=== PATIENT | female | born 1965 | race Caucasian/White ===

== ENCOUNTER → 2018-06-25 13:37 | Outpatient (CLI) | payer OTHER, MEDICAID, SELFPAY ==
--- NOTE | 2018-06-25 13:54 | DI.RAD.S_ITS ---
PROCEDURE: XR HAND LT MIN 3V INDICATIONS: left thumb pain TECHNIQUE: 3 views of the hand(s) acquired. COMPARISON: None. FINDINGS: Bones: No fractures or dislocations. Carpal bones are normally aligned. No suspicious bony lesions. Severe first carpometacarpal degenerative arthritis is noted. Soft tissues: No suspicious soft tissue calcifications. IMPRESSION: Severe degenerative arthritis at the base of the thumb. Dictated by: Tommie Schafer M.D. on 06/25/2018 at 17:34 Approved by: Tommie Schafer M.D. on 06/25/2018 at 17:34
[2018-06-25 14:26] LABS: Hematocrit 38.3 % (36-46); Hemoglobin 12.5 g/dL (12.0-16.0); Mean Corpuscular HGB Conc 32.7 % (30-36); Mean Corpuscular Hemoglobin 28.5 PG (26-34); Mean Corpuscular Volume 87.2 fL (80-100); Platelet Count 230 X10^3/uL (150-400); Red Blood Cell Count 4.39 X10^6/uL (4.0-5.2); Red Cell Distribution Width 13.8 % (11.6-14.8); White Blood Cell Count 6.2 X10^3/uL (4.5-11.0)
[2018-06-25 14:44] LABS: Alanine Aminotransferase 31 IU/L (9-52); Albumin 4.4 g/dL (3.5-5.0); Albumin Globulin Ratio 1.5 (1.0-2.8); Alkaline Phosphatase 82 U/L (38-126); Aspartate Aminotransferase 34 IU/L (14-36); Bilirubin Total 1.1 mg/dL (0.2-1.3); Blood Urea Nitrogen 16 mg/dL (7-17); Calcium 9.5 mg/dL (8.4-10.2); Carbon Dioxide 29 mmol/L (22-32); Chloride 101 mmol/L (98-107); Cholesterol 186 mg/dL (140-199); Estimated Glomerular Filt Rate > 60.0 mL/min (>60); Glucose 88 mg/dL (70-100); HDL Cholesterol 85 mg/dL (40-60); HEMOLYSIS < 15 (0-50); LDL Cholesterol Calculated 91 mg/dL (<100); Potassium 4.2 mmol/L (3.4-5.1); Sodium 139 mmol/L (137-145); Total Protein 7.4 g/dL (6.3-8.2); Triglycerides 48 mg/dL (35-150)
== END ==
PROVIDERS: Visit Provider Nurse Practitioner Family
DX: Z00.00 Encounter for general adult medical examination without abnormal findings (principal); Z13.6 Encounter for screening for cardiovascular disorders; M79.645 Pain in left finger(s)
CPT/HCPCS: 36415; 73130; 80053; 80061; 85027

== ENCOUNTER 2018-07-18 02:26 | Emergency (ER) | payer OTHER, MEDICAID, SELFPAY ==
[2018-07-18 02:30] VITALS: BP 147/105; PULSE 119; RESP 20; TEMP 36.5; O2SAT 96; BMI 21.6
--- NOTE | 2018-07-18 02:30 | ED.BACK ---
HPI - Back Pain/Injury General Chief Complaint: Back Pain/Injury Stated Complaint: BACK PAIN Time Seen by Provider: 07/18/18 02:27 Source: patient Mode of arrival: ambulatory Limitations: no limitations History of Present Illness HPI Narrative: Patient is here for right-sided upper back spasm. She states that it is radiating down to her right hand and providing tingling. She states it has been waking her up from night for the past several nights. Has not tried anything for the symptoms prior to arrival except for some light stretching. No specific trauma. She came in because the symptoms were getting worse this evening. Related Data Previous Rx's Medication Instructions Recorded naproxen 500 mg tablet 500 mg PO BID PRN #30 tab 06/20/18 cyclobenzaprine 10 mg PO TID PRN #14 tab 07/18/18 Allergies Allergy/AdvReac Type Severity Reaction Status Date / Time cephalexin [From Keflex] Allergy Severe really Verified 06/25/18 14:31 sick hydrocodone [HYDROCODONE] Allergy Unknown Unverified 06/25/18 14:31 Review of Systems Constitutional Denies fever(s) and Denies headache(s) ENT Ears, Nose, Mouth, and Throat: Denies headache(s) Cardiovascular Denies chest pain and Denies dyspnea Respiratory Denies dyspnea Musculoskeletal Comments: Upper back pain Integumentary/Breasts Denies rash Neurologic Denies headache(s) Comments: Tingling into the right hand Hematologic/Lymphatic Denies easy bleeding and Denies easy bruising [facility] Medical History Patient denies medical problems (Acute) Social History Smoking Status: Current every day smoker Tobacco: How many years used: 30 quit status: not considering quitting (Patient given smoking cessation handout) second hand exposure: No alcohol intake: never substance use type: does not use Social History Smoking Status: Current every day smoker Tobacco: How many years used: 30 quit status: not considering quitting (Patient given smoking cessation handout) second hand exposure: No alcohol intake: never substance use type: does not use Exam Initial Vital Signs Initial Vital Signs: Vital Signs Temperature 97.7 F 07/18/18 02:30 Pulse Rate 119 H 07/18/18 02:30 Respiratory Rate 20 07/18/18 02:30 Blood Pressure 147/105 H 07/18/18 02:30 Pulse Oximetry 96 07/18/18 02:30 Const General: cooperative, No comfortable (Uncomfortable), well developed, well groomed and No acute distress Orientation: alert and awake HENMT Head: normal to inspection and normocephalic Resp Effort & Inspection: normal respiratory effort Cardio Rate: tachycardic Back/Spine/Pelvis Other: On able to specifically locate muscle spasm in the upper back on the right side. Left side patient has no symptoms. Skin Lesions: no lesions Rashes: no rashes Neuro General: alert and awake Cognition: normal cognition Speech: speech normal Sensory Exam: no sensory deficits noted Extrem General: normal to inspection and capillary refill normal Course Orders Ordered: Discontinued Medications Diazepam (Valium) 5 mg PO NOW ONE Stop: 07/18/18 02:35 Last Admin: 07/18/18 02:38 Dose: 5 mg Ketorolac Tromethamine (Toradol) 30 mg IM NOW ONE Stop: 07/18/18 02:35 Last Admin: 07/18/18 02:37 Dose: 30 mg Vital Signs - 8 hr 07/18/18 02:30 Temperature 97.7 F Pulse Rate 119 H Respiratory Rate 20 Blood Pressure 147/105 H Pulse Oximetry 96 MDM - Back Pain/Injury MDM Narrative Medical decision making narrative: Patient reports some improvement of the symptoms after the medications here in the ER. A note from earlier this month from her primary provider does indicate the patient was complaining of tingling to bilateral hands patient has no fevers. We did discuss the use of anti-inflammatories and muscle relaxation. We also discussed return precautions and follow-up instructions. She expressed understanding and agreement plan. Discharge Plan Departure Patient Disposition: Home Clinical Impression: Acute right-sided thoracic back pain, Paresthesias in right hand Instructions: DI for Thoracic Back Pain Activity Restrictions/Additional Instructions: Recommend that you start taking anti-inflammatories such as Motrin/ibuprofen or Naprosyn/naproxen. Sure to take this with some food. Contact your primary care provider for a follow-up. You can also use heat and ice and I also recommend light massage to help with the pain. Return to the emergency department for any new symptoms Prescriptions: New cyclobenzaprine 10 mg tablet 10 mg PO TID PRN (Reason: muscle spasm) Qty: 14 RF: 0 No Action naproxen 500 mg tablet 500 mg PO BID PRN (Reason: pain) Qty: 30 RF: 0 Referrals: Ismael Merino ARNP [Primary Care Provider] -
[2018-07-18] MEDS: KETOROLAC 60 MG/2 ML VIAL 30 MG IM (02:37)
[2018-07-18] MEDS: diazePAM 5 MG TABLET PO (02:38)
[2018-07-18 03:20] VITALS: BP 120/80; PULSE 92; RESP 18; O2SAT 98
--- NOTE | 2018-07-18 03:31 | PC.NURSE ---
Patient states right-sided upper back spasm thats radiating down to her right hand and tingling that has been occuring at night for the past week and usually resolves but did not resolve tonight. States she thinks she has overdone it with too much activity and gardening lately. Pt ambulating about room denies urinary or bowel incontinence.
== END 2018-07-18 03:31 | disposition home or self-care (01) ==
PROVIDERS: Emergency Provider Emergency Medicine; PCP Nurse Practitioner Family
DX: M54.6 Pain in thoracic spine (principal); R20.2 Paresthesia of skin
CPT/HCPCS: 96372; 99282; 99283; J1885

== ENCOUNTER 2018-08-26 10:30 | Outpatient (RCR) | payer OTHER, MEDICAID, SELFPAY ==
--- NOTE | 2018-07-09 17:35 | PT.OIE ---
Current Diagnoses Anesthesia of skin (07/09/18) Provider Visit Care Team Role Provider Type RAMANA Michelle Attending Provider Advanced Human Resource Advisor Primary Care Provider Specialty: Family Practice Address: [address] [place] [address], [id number] Email: Physical Therapy Initial Evaluation PT-OP-A Visit Information Start: 07/09/18 16:21 Freq: Status: Active Protocol: Document 07/09/18 17:35 EA (Rec: 07/10/18 07:30 EA [id number]) Out-Patient Physical Therapy Visit Information Visit Information Visit Type Initial Evaluation Visit Start Time 12:15 Visit Stop Time 13:00 Total Visit Minutes 35 Visit Number 1 Evaluation Information Evaluation Date 07/09/18 Precautions Precautions None identified PT-OP-B Current Condition Start: 07/09/18 16:21 Freq: Status: Active Protocol: Document 07/09/18 17:35 EA (Rec: 07/10/18 07:30 EA [id number]) Current Condition History of Current Condition Onset Date June 29, 2018 Current Complaints Mid back pain w/ tingling radiates down R arm and dorsal 3rd and 4th finger History of Current Condition Patient reports current condition started more than 6 months ago and which exacerbates more than a week ago after pruning on her backyard; states advil and helps to alleviate pain and tingling but was not completely eliminate. Patient reports pain and tingling mostly happened upon waking up in the morning or in the middle of the evening and decreases once started using it during the day. She also mentioned that arm pain and tingling mostly accompanied with mid back pain. She denies recent diagnostic imaging. She denies any related injury in the past. Prior Treatments and Tests Advil for pain Future Testing and Treatments Planned None identified. Treatment Goals Patient/Caregiver Goals Patient wants to get rid of the pain so she could use it for writing and be able sleep without bothering from pain and abnormal sensation to right UE. 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 Functional Limitations- Work/School Unable to work due to right shoulder and hand discomfort. Functional Limitations- Recreation/ Difficulty with gardening. Hobbies Personal Factors Other Personal Factors That May Effect None identified. Therapy/Recovery PT-OP-C Subjective Start: 07/09/18 16:21 Freq: Status: Active Protocol: Document 07/09/18 17:35 EA (Rec: 07/10/18 12:44 EA [id number]) OP-PT Subjective Patient Comments Patient Comments My right arm and fingers goes numb and tingled in the morning when I wake up and got better throughout the day Patient Reported Progress Same OP-PT Pain Assessment Pain Assessment Grid Paper Pain Assessment Grid Completed Yes Location Bilateral Upper Medial Back Pain Location Details Mid back, right arm Scale Used Numeric (1 - 10) Description Radiating Tingling Frequency Intermittent Pain Aggravating Factors Position Other Pain Alleviating Factors Advil Patient Stated Pain Goal 0 PT-OP-E Functional Tests Start: 07/09/18 16:21 Freq: Status: Active Protocol: Document 07/09/18 17:35 EA (Rec: 07/10/18 12:38 EA [id number]) Functional Tests Other 1 Name of Test Hand pantograph transferrer dynamometer: L 32 ; R 32 Score Normal (28) PT-OP-F Manual Assessment Start: 07/09/18 16:21 Freq: Status: Active Protocol: Document 07/09/18 17:35 EA (Rec: 07/10/18 12:38 EA [id number]) Manual Assessments Soft Tissue Assessment Soft Tissue Mobility Assessment Tight right scapular borders, scalenes, traps, rhomboids. Tight shoulder internal rotators. Joint Mobility Assessment Joint Mobility Assessment Normal joint mobility on shoulder, CMC, wrists. PT-OP-J Posture/Palpation/Skin Start: 07/09/18 16:21 Freq: Status: Active Protocol: Document 07/09/18 17:35 EA (Rec: 07/10/18 12:38 EA [id number]) Posture Evaluation Position Standing Evaluation View Lateral Head/C-Spine Posture Extended Forward Head Shoulder Posture (L) Rounded (L) Forward Scapula Posture (L) Protracted (R) Protracted Comments Posture Comments Slight fwd head with shoulders internally rotated. Palpation Assessment Location One Palpation Location Rhomboids, mid traps, right scapular muscles. Palpation Findings Tenderness Trigger Point Palpation Details Both rhomboids PT-OP-K Range of Motion Start: 07/09/18 16:21 Freq: Status: Active Protocol: Document 07/09/18 17:35 EA (Rec: 07/10/18 12:15 EA [id number]) Cervical Spine Range of Motion Cervical Spine Active Percentage Testing Position Sitting Flexion 90 Extension 85 Rotation Left 85 Rotation Right 85 Lateral Flexion Left 80 Lateral Flexion Right 80 ROM Limitations Soft Tissue Tightness Pain Shoulder Goniometric Range of Motion Shoulder Measured in Degrees Right Active Shoulder ROM WFL Yes Elbow/Forearm Range of Motion Elbow/Forearm Measured in Degrees Right Active Elbow/Forearm ROM WFL Yes Thumb Goniometric Range of Motion Thumb Measured in Degrees Left Thumb ROM WFL Yes PT-OP-L Special Tests Start: 07/09/18 16:21 Freq: Status: Active Protocol: Document 07/09/18 17:35 EA (Rec: 07/10/18 12:15 EA [id number]) Special Tests Cervical Spine Special Tests Upper Limb Tension Test Test Results + ulnar Foraminal Compression Test Results - Vertebral Artery Test Results - Shoulder Special Tests Leung Santy Impingement Test Results - Elevation Impingement Test Results - Neural Special Tests- Lower Body Other- 1 Test Results [place] and Lala tests + Other Special Tests Special Tests Trigger point jump sign: positive at right medial scapular border PT-OP-M Strength Start: 07/09/18 16:21 Freq: Status: Active Protocol: Document 07/09/18 17:35 EA (Rec: 07/10/18 12:15 EA [id number]) Cervical Spine Strength Cervical Spine Manual Muscle Testing Testing Position Supine Reason Not Measured WFL Shoulder Strength Shoulder Manual Muscle Testing Right Reason Not Measured WFL Wrist Strength Wrist Manual Muscle Testing Right Reason Not Measured WFL Finger/Thumb Strength Finger Manual Muscle Testing Right Thumb Reason Not Measured WFL Hand Fiscal Economist/Pinch Strength Hand Dominance Hand Dominance Right PT-OP-Q Treatments Start: 07/09/18 16:21 Freq: Status: Active Protocol: Document 07/09/18 17:03 EA (Rec: 07/09/18 17:06 EA [id number]) Self-Care/Home Management Treatment Education Patient Education Home Exercise Program Pain Management Posture PT-OP-T Assessment and Plan Start: 07/09/18 16:21 Freq: Status: Active Protocol: Document 07/09/18 17:35 EA (Rec: 07/09/18 17:06 EA [id number]) Physical Therapy Assessment Rehab Potential Rehabilitation Potential Good Evaluation Complexity Number of Personal Factors/Comorbidities 0 Number of Body Systems Impaired 1-2 Clinical Presentation at Evaluation Evolving Impairments Impairments Edema Pain Posture ROM Soft Tissue Mobility Goals Four Impairment No HEP in place Tester Operator Goal (LTG) Patient will comply to recommended HEP safe and independent LTG Duration 3 wks Three Impairment Impaired gardening activity tolerance Tester Operator Goal (LTG) Patient will report no gardening activity limitation LTG Duration 5 wks Two Impairment Impaired writing Tester Operator Goal (LTG) Patient will report no difficulty in writing activities. LTG Duration 4 wks One Impairment Impaired sleeping Tester Operator Goal (LTG) Patient will sleep with no waking up in the middle of the night and will wake up in the morning without arm discomfort LTG Duration 4 wks Assessment Summary Assessment 52 y/o F patient slightly distress with a referring diagnosis of right finger numbness. Today patient exhibited normal R UEs ROM of major joints and strength with no evidence of significant weakness. Special tests reveals positive with trigger point jump sign, nerve tension to ulnar nerve, negative with cervical nerve compression, negative with rotator cuff dysfunction. Through patient history and assessments, patient may be suffering with scapular trigger points with combination of increased nerve tension to ulnas nerve, however no evidence of cervical nerve root compression. Due to above dysfunction, patient is impaired to perform daily functional tasks that is supposed to be normal at her age. In my professional opinion, patient would greatly benefit with skilled PT to reach maximum function. Physical Therapy Plan Frequency and Duration Frequency of Treatment 2x/Week Duration of Treatment 8 wks Plan of Care Start Date 07/09/18 Plan of Care End Date 09/03/18 Therapeutic Interventions Therapeutic Interventions Home Exercise Program Manual Therapy Neuromuscular Re-education Patient/Caregiver Education Self-Care/Home Management Soft Tissue Mobilization Taping Therapeutic Exercises Modalities Cold Pack/Ice Massage Electric Stimulation Hot Packs Paraffin Bath Next Visit Focus/Plan Next Note Type Treatment Note Next Visit Plan Provide HEP images, myofascial release to scapular borders, postural exercises.
--- NOTE | 2018-07-09 17:40 | PT.OIE ---
Current Diagnoses Anesthesia of skin (07/09/18) Provider Visit Care Team Role Provider Type RAMANA Michelle Attending Provider Advanced Wax Pattern Assembler Primary Care Provider Specialty: Family Practice Address: [address] [place] [address], [id number] Email: Physical Therapy Initial Evaluation PT-OP-A Visit Information Start: 07/09/18 16:21 Freq: Status: Active Protocol: Document 07/09/18 17:35 EA (Rec: 07/10/18 07:30 EA [id number]) Out-Patient Physical Therapy Visit Information Visit Information Visit Type Initial Evaluation Visit Start Time 12:15 Visit Stop Time 13:00 Total Visit Minutes 35 Visit Number 1 Evaluation Information Evaluation Date 07/09/18 Precautions Precautions None identified PT-OP-B Current Condition Start: 07/09/18 16:21 Freq: Status: Active Protocol: Document 07/09/18 17:35 EA (Rec: 07/10/18 07:30 EA [id number]) Current Condition History of Current Condition Onset Date June 29, 2018 Current Complaints Mid back pain w/ tingling radiates down R arm and dorsal 3rd and 4th finger History of Current Condition Patine reports current conditiotn started more than 6 months and which exacerbates more than a week ago after prunning on her backyard; states advil and helps to alleviate pain and tingling but was not completely eliminate. Patient reports pain and tingling mostly happened upon waking up in the morning or in the middle of the evening and decreases once strated using it during the day. She also mentioned that arm pain and tingling mostly accompanied with mid back pain . She denies recent diagnostic imaging. She denies any related injury in the past. Prior Treatments and Tests Advil for pain Future Testing and Treatments Planned None identified. Treatment Goals Patient/Caregiver Goals Patient wants to get rid of the pain so she could use it for writing and be able sleep without bothering from pain and abnormal sensation to right UE. 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 Functional Limitations- Work/School Unable to work due to right shoulder and hand discomfort. Functional Limitations- Recreation/ Difficulty with gardening. Hobbies Personal Factors Other Personal Factors That May Effect None identified. Therapy/Recovery PT-OP-C Subjective Start: 07/09/18 16:21 Freq: Status: Active Protocol: Document 07/09/18 17:35 EA (Rec: 07/10/18 12:44 EA [id number]) OP-PT Subjective Patient Comments Patient Comments My right arm and fingers goes numb and tingled in the morning when I wake up and got better throughout the day Patient Reported Progress Same OP-PT Pain Assessment Pain Assessment Grid Paper Pain Assessment Grid Completed Yes Location Bilateral Upper Medial Back Pain Location Details Mid back, right arm Scale Used Numeric (1 - 10) Description Radiating Tingling Frequency Intermittent Pain Aggravating Factors Position Other Pain Alleviating Factors Advil Patient Stated Pain Goal 0 PT-OP-E Functional Tests Start: 07/09/18 16:21 Freq: Status: Active Protocol: Document 07/09/18 17:35 EA (Rec: 07/10/18 12:38 EA [id number]) Functional Tests Other 1 Name of Test Hand boiler operator dynamometer: L 32 ; R 32 Score Normal (28) PT-OP-F Manual Assessment Start: 07/09/18 16:21 Freq: Status: Active Protocol: Document 07/09/18 17:35 EA (Rec: 07/10/18 12:38 EA [id number]) Manual Assessments Soft Tissue Assessment Soft Tissue Mobility Assessment Tight right scapular borders, scalenes, traps, rhomboids. Tight shoulder internal rotators. Joint Mobility Assessment Joint Mobility Assessment Normal joint mobility on shoulder, CMC, wrists. PT-OP-J Posture/Palpation/Skin Start: 07/09/18 16:21 Freq: Status: Active Protocol: Document 07/09/18 17:35 EA (Rec: 07/10/18 12:38 EA [id number]) Posture Evaluation Position Standing Evaluation View Lateral Head/C-Spine Posture Extended Forward Head Shoulder Posture (L) Rounded (L) Forward Scapula Posture (L) Protracted (R) Protracted Comments Posture Comments Slight fwd head with shoulders internally rotated. Palpation Assessment Location One Palpation Location Rhomboids, mid traps, right scapular muscles. Palpation Findings Tenderness Trigger Point Palpation Details Both rhomboids PT-OP-K Range of Motion Start: 07/09/18 16:21 Freq: Status: Active Protocol: Document 07/09/18 17:35 EA (Rec: 07/10/18 12:15 EA [id number]) Cervical Spine Range of Motion Cervical Spine Active Percentage Testing Position Sitting Flexion 90 Extension 85 Rotation Left 85 Rotation Right 85 Lateral Flexion Left 80 Lateral Flexion Right 80 ROM Limitations Soft Tissue Tightness Pain Shoulder Goniometric Range of Motion Shoulder Measured in Degrees Right Active Shoulder ROM WFL Yes Elbow/Forearm Range of Motion Elbow/Forearm Measured in Degrees Right Active Elbow/Forearm ROM WFL Yes Thumb Goniometric Range of Motion Thumb Measured in Degrees Left Thumb ROM WFL Yes PT-OP-L Special Tests Start: 07/09/18 16:21 Freq: Status: Active Protocol: Document 07/09/18 17:35 EA (Rec: 07/10/18 12:15 EA [id number]) Special Tests Cervical Spine Special Tests Upper Limb Tension Test Test Results + ulnar Foraminal Compression Test Results - Vertebral Artery Test Results - Shoulder Special Tests Leung Santy Impingement Test Results - Elevation Impingement Test Results - Neural Special Tests- Lower Body Other- 1 Test Results [place]ancarl[place] and Lala tests + Other Special Tests Special Tests Trigger point jump sign: positive at right medial scapular border PT-OP-M Strength Start: 07/09/18 16:21 Freq: Status: Active Protocol: Document 07/09/18 17:35 EA (Rec: 07/10/18 12:15 EA [id number]) Cervical Spine Strength Cervical Spine Manual Muscle Testing Testing Position Supine Reason Not Measured WFL Shoulder Strength Shoulder Manual Muscle Testing Right Reason Not Measured WFL Wrist Strength Wrist Manual Muscle Testing Right Reason Not Measured WFL Finger/Thumb Strength Finger Manual Muscle Testing Right Thumb Reason Not Measured WFL Hand Pediatric Acute Care Unit Nurse/Pinch Strength Hand Dominance Hand Dominance Right PT-OP-Q Treatments Start: 07/09/18 16:21 Freq: Status: Active Protocol: Document 07/09/18 17:03 EA (Rec: 07/09/18 17:06 EA [id number]) Self-Care/Home Management Treatment Education Patient Education Home Exercise Program Pain Management Posture PT-OP-T Assessment and Plan Start: 07/09/18 16:21 Freq: Status: Active Protocol: Document 07/09/18 17:35 EA (Rec: 07/09/18 17:06 EA [id number]) Physical Therapy Assessment Rehab Potential Rehabilitation Potential Good Evaluation Complexity Number of Personal Factors/Comorbidities 0 Number of Body Systems Impaired 1-2 Clinical Presentation at Evaluation Evolving Impairments Impairments Edema Pain Posture ROM Soft Tissue Mobility Goals Four Impairment No HEP in place Whiting Machine Operator Goal (LTG) Patient will comply to recommended HEP safe and independent LTG Duration 3 wks Three Impairment Impaired gardening activity tolerance Whiting Machine Operator Goal (LTG) Patient will report no gardening activity limitation LTG Duration 5 wks Two Impairment Impaired writing Whiting Machine Operator Goal (LTG) Patient will report no diffikculty in writing activities. LTG Duration 4 wks One Impairment Impaired sleeping Detention Goal (LTG) Patient will sleep with no waking up in the middle of the night and will wake up in the morning without arm discomfort LTG Duration 4 wks Assessment Summary Assessment 52 y/o F patient slightly distress with a referring diagnosis of right finger numbness. Today patient exhibited normal R UEs ROM of major joints and strength with no evidence of significant weakness. Special tests reveals positive with trigger point jump sign, nerve tension to ulnar nerve, negative with cervical nerve compression, negative with rotator cuff dysfunction. Through patient history and assessments, patient may be suffering with scapular trigger points with combination of increased nerve tension to ulnas nerve, however no evidence of cervical nerve root compression. Due to above dysfunction, patient is impared to perform daily functional tasks that is supposed to be normal at her age. In my professional opinion, patient would greatly benefit with skilled PT to reach maximum function. Physical Therapy Plan Frequency and Duration Frequency of Treatment 2x/Week Duration of Treatment 8 wks Plan of Care Start Date 07/09/18 Plan of Care End Date 09/03/18 Therapeutic Interventions Therapeutic Interventions Home Exercise Program Manual Therapy Neuromuscular Re-education Patient/Caregiver Education Self-Care/Home Management Soft Tissue Mobilization Taping Therapeutic Exercises Modalities Cold Pack/Ice Massage Electric Stimulation Hot Packs Paraffin Bath Next Visit Focus/Plan Next Note Type Treatment Note Next Visit Plan Provide HEP images, myofascial release to scapular borders, postural exercises.
--- NOTE | 2018-07-09 17:40 | PT.OPPOC ---
Current Diagnoses Anesthesia of skin (07/09/18) Provider Visit Care Team Role Provider Type RAMANA Michelle Attending Provider Advanced Engineering Test Mechanic Primary Care Provider Specialty: Family Practice Address: [address] [place] [address], [phone] Email: Plan Of Care PT-OP-T Assessment and Plan Start: 07/09/18 16:21 Freq: Status: Active Protocol: Document 07/09/18 17:35 EA (Rec: 07/09/18 17:06 EA [id number]) Physical Therapy Assessment Rehab Potential Rehabilitation Potential Good Evaluation Complexity Number of Personal Factors/Comorbidities 0 Number of Body Systems Impaired 1-2 Clinical Presentation at Evaluation Evolving Impairments Impairments Edema Pain Posture ROM Soft Tissue Mobility Goals Four Impairment No HEP in place Associate Doctor Goal (LTG) Patient will comply to recommended HEP safe and independent LTG Duration 3 wks Three Impairment Impaired gardening activity tolerance Intermediate Goal (LTG) Patient will report no gardening activity limitation LTG Duration 5 wks Two Impairment Impaired writing Intermediate Goal (LTG) Patient will report no difficulty in writing activities. LTG Duration 4 wks One Impairment Impaired sleeping Associate Doctor Goal (LTG) Patient will sleep with no waking up in the middle of the night and will wake up in the morning without arm discomfort LTG Duration 4 wks Assessment Summary Assessment 52 y/o F patient slightly distress with a referring diagnosis of right finger numbness. Today patient exhibited normal R UEs ROM of major joints and strength with no evidence of significant weakness. Special tests reveals positive with trigger point jump sign, nerve tension to ulnar nerve, negative with cervical nerve compression, negative with rotator cuff dysfunction. Through patient history and assessments, patient may be suffering with scapular trigger points with combination of increased nerve tension to ulnas nerve, however no evidence of cervical nerve root compression. Due to above dysfunction, patient is impaired to perform daily functional tasks that is supposed to be normal at her age. In my professional opinion, patient would greatly benefit with skilled PT to reach maximum function. Physical Therapy Plan Frequency and Duration Frequency of Treatment 2x/Week Duration of Treatment 8 wks Plan of Care Start Date 07/09/18 Plan of Care End Date 09/03/18 Therapeutic Interventions Therapeutic Interventions Home Exercise Program Manual Therapy Neuromuscular Re-education Patient/Caregiver Education Self-Care/Home Management Soft Tissue Mobilization Taping Therapeutic Exercises Modalities Cold Pack/Ice Massage Electric Stimulation Hot Packs Paraffin Bath Next Visit Focus/Plan Next Note Type Treatment Note Next Visit Plan Provide HEP images, myofascial release to scapular borders, postural exercises. Plan of Care Dates Plan of Care Start Date 07/09/18 Plan of Care End Date 09/03/18 Please Sign and Return: I have reviewed this Plan of Care and certify that the skilled therapy services above are required to meet the patient?s needs. Physician Signature Date Printed Name and Credentials Clinical Instructor Signature Printed Name and Credentials
--- NOTE | 2018-07-11 15:17 | PT.OTN ---
Current Diagnoses Anesthesia of skin (07/11/18) Physical Therapy Treatment Note PT-OP-A Visit Information Start: 07/09/18 16:21 Freq: Status: Active Protocol: Document 07/11/18 12:54 EA (Rec: 07/11/18 13:02 EA [id number]) Out-Patient Physical Therapy Visit Information Visit Information Visit Type Initial Evaluation Visit Start Time 12:15 Visit Stop Time 13:08 Total Visit Minutes 53 Visit Number 2 PT-OP-B Current Condition Start: 07/09/18 16:21 Freq: Status: Active Protocol: Document 07/09/18 17:35 EA (Rec: 07/10/18 07:30 EA [id number]) Current Condition History of Current Condition Onset Date June 29, 2018 Current Complaints Mid back pain w/ tingling radiates down R arm and dorsal 3rd and 4th finger History of Current Condition Patient reports current condition started more than 6 months ago and which exacerbates more than a week ago after prunning on her backyard; states advil and helps to alleviate pain and tingling but was not completely eliminate. Patient reports pain and tingling mostly happened upon waking up in the morning or in the middle of the evening and decreases once strated using it during the day. She also mentioned that arm pain and tingling mostly accompanied with mid back pain. She denies recent diagnostic imaging. She denies any related injury in the past. Prior Treatments and Tests Advil for pain Future Testing and Treatments Planned None identified. Treatment Goals Patient/Caregiver Goals Patient wants to get rid of the pain so she could use it for writing and be able sleep without bothering from pain and abnormal sensation to right UE. 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 Functional Limitations- Work/School Unable to work due to right shoulder and hand discomfort. Functional Limitations- Recreation/ Difficulty with gardening. Hobbies Personal Factors Other Personal Factors That May Effect None identified. Therapy/Recovery PT-OP-C Subjective Start: 07/09/18 16:21 Freq: Status: Active Protocol: Document 07/11/18 12:54 EA (Rec: 07/11/18 13:02 EA [id number]) OP-PT Subjective Patient Comments Patient Comments Patient reports tennis ball pressure to back helps a bit. PT-OP-E Functional Tests Start: 07/09/18 16:21 Freq: Status: Active Protocol: Document 07/09/18 17:35 EA (Rec: 07/10/18 12:38 EA [id number]) Functional Tests Other 1 Name of Test Hand senior applications architect dynamometer: L 32 ; R 32 Score Normal (28) PT-OP-F Manual Assessment Start: 07/09/18 16:21 Freq: Status: Active Protocol: Document 07/09/18 17:35 EA (Rec: 07/10/18 12:38 EA [id number]) Manual Assessments Soft Tissue Assessment Soft Tissue Mobility Assessment Tight right scapular borders, scalenes, traps, rhomboids. Tight shoulder internal rotators. Joint Mobility Assessment Joint Mobility Assessment Normal joint mobility on shoulder, CMC, wrists. PT-OP-J Posture/Palpation/Skin Start: 07/09/18 16:21 Freq: Status: Active Protocol: Document 07/09/18 17:35 EA (Rec: 07/10/18 12:38 EA [id number]) Posture Evaluation Position Standing Evaluation View Lateral Head/C-Spine Posture Extended Forward Head Shoulder Posture (L) Rounded (L) Forward Scapula Posture (L) Protracted (R) Protracted Comments Posture Comments Slight fwd head with shoulders internally rotated. Palpation Assessment Location One Palpation Location Rhomboids, mid traps, right scapular muscles. Palpation Findings Tenderness Trigger Point Palpation Details Both rhomboids PT-OP-K Range of Motion Start: 07/09/18 16:21 Freq: Status: Active Protocol: Document 07/09/18 17:35 EA (Rec: 07/10/18 12:15 EA [id number]) Cervical Spine Range of Motion Cervical Spine Active Percentage Testing Position Sitting Flexion 90 Extension 85 Rotation Left 85 Rotation Right 85 Lateral Flexion Left 80 Lateral Flexion Right 80 ROM Limitations Soft Tissue Tightness Pain Shoulder Goniometric Range of Motion Shoulder Measured in Degrees Right Active Shoulder ROM WFL Yes Elbow/Forearm Range of Motion Elbow/Forearm Measured in Degrees Right Active Elbow/Forearm ROM WFL Yes Thumb Goniometric Range of Motion Thumb Measured in Degrees Left Thumb ROM WFL Yes PT-OP-L Special Tests Start: 07/09/18 16:21 Freq: Status: Active Protocol: Document 07/09/18 17:35 EA (Rec: 07/10/18 12:15 EA [id number]) Special Tests Cervical Spine Special Tests Upper Limb Tension Test Test Results + ulnar Foraminal Compression Test Results - Vertebral Artery Test Results - Shoulder Special Tests Leung Santy Impingement Test Results - Elevation Impingement Test Results - Neural Special Tests- Lower Body Other- 1 Test Results [place] and Lala tests + Other Special Tests Special Tests Trigger point jump sign: positive at right medial scapular border PT-OP-M Strength Start: 07/09/18 16:21 Freq: Status: Active Protocol: Document 07/09/18 17:35 EA (Rec: 07/10/18 12:15 EA [id number]) Cervical Spine Strength Cervical Spine Manual Muscle Testing Testing Position Supine Reason Not Measured WFL Shoulder Strength Shoulder Manual Muscle Testing Right Reason Not Measured WFL Wrist Strength Wrist Manual Muscle Testing Right Reason Not Measured WFL Finger/Thumb Strength Finger Manual Muscle Testing Right Thumb Reason Not Measured WFL Hand Steam Engineer/Pinch Strength Hand Dominance Hand Dominance Right PT-OP-Q Treatments Start: 07/09/18 16:21 Freq: Status: Active Protocol: Document 07/11/18 12:54 EA (Rec: 07/11/18 13:02 EA [id number]) Cardio Equipment Upper Body Ergometer (UBE) Duration (Minutes) 5 Height 5 Other warm up Therapeutic Exercises Prone Exercises 2 Prone Exercise Name Shoulder flexion/Y Reps/Minutes 15 reps x 2 1 Prone Exercise Name Horiz ABD Reps/Minutes x 15 reps x 2 Sitting Exercises 2 Sitting Exercise Name Sitted chest stretch Reps/Minutes x 30SH x 3 reps 1 Sitting Exercise Name rhomboids, traps stretch Reps/Minutes x 30SH x 3 reps Manual Therapy Treatment Soft Tissue Mobilization 1 Body Location Rhomboids, scapular borders Mobilization Type Myofascial Release Rolling Sustained Pressure Trigger Point Release Intensity/Depth Moderate Comments Start and end with effleurage PT-OP-R Modalities Start: 07/09/18 16:21 Freq: Status: Active Protocol: Document 07/11/18 12:54 EA (Rec: 07/11/18 13:02 EA [id number]) Electric Stimulation Electric Stimulation Interferential Current (IFC) Body Location rhomboids, T-major, infra Duration (Minutes) 15 Intensity 25 Patient Position Prone Combined With Heat/Cold Hot Pack PT-OP-T Assessment and Plan Start: 07/09/18 16:21 Freq: Status: Active Protocol: Document 07/11/18 12:54 EA (Rec: 07/11/18 13:02 EA [id number]) Physical Therapy Assessment Assessment Summary Assessment Patient performed exercises very well with no range of pain noted at this time. Patient understands and showed good carryover after HEP education. Symptoms improved after manual. Physical Therapy Plan Next Visit Focus/Plan Next Note Type Treatment Note Next Visit Plan myofascial release to scapular borders, postural exercises.
--- NOTE | 2018-07-17 13:00 | PT.OTN ---
Current Diagnoses Anesthesia of skin (07/17/18) Physical Therapy Treatment Note PT-OP-A Visit Information Start: 07/09/18 16:21 Freq: Status: Active Protocol: Document 07/17/18 13:00 DLM (Rec: 07/17/18 15:38 DLM [id number]) Out-Patient Physical Therapy Visit Information Visit Information Visit Type Treatment Note Visit Start Time 13:00 Visit Stop Time 13:50 Total Visit Minutes 50 Visit Number 3 Evaluation Information Evaluation Date 07/09/18 PT-OP-B Current Condition Start: 07/09/18 16:21 Freq: Status: Active Protocol: Document 07/09/18 17:35 EA (Rec: 07/10/18 07:30 EA [id number]) Current Condition History of Current Condition Onset Date June 29, 2018 Current Complaints Mid back pain w/ tingling radiates down R arm and dorsal 3rd and 4th finger History of Current Condition Patient reports current condition started more than 6 months ago and which exacerbates more than a week ago after prunning on her backyard; states advil and helps to alleviate pain and tingling but was not completely eliminate. Patient reports pain and tingling mostly happened upon waking up in the morning or in the middle of the evening and decreases once strated using it during the day. She also mentioned that arm pain and tingling mostly accompanied with mid back pain. She denies recent diagnostic imaging. She denies any related injury in the past. Prior Treatments and Tests Advil for pain Future Testing and Treatments Planned None identified. Treatment Goals Patient/Caregiver Goals Patient wants to get rid of the pain so she could use it for writing and be able sleep without bothering from pain and abnormal sensation to right UE. 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 Functional Limitations- Work/School Unable to work due to right shoulder and hand discomfort. Functional Limitations- Recreation/ Difficulty with gardening. Hobbies Personal Factors Other Personal Factors That May Effect None identified. Therapy/Recovery PT-OP-C Subjective Start: 07/09/18 16:21 Freq: Status: Active Protocol: Document 07/17/18 13:00 DLM (Rec: 07/17/18 15:38 DLM [id number]) OP-PT Subjective Patient Comments Patient Comments She continues to have intermittent symptoms in right UE. It is worse in the morning when she gets up. Her hand also feels stiff. Her friend has a home estim unit and she questioned if she can use it. PT-OP-E Functional Tests Start: 07/09/18 16:21 Freq: Status: Active Protocol: Document 07/09/18 17:35 EA (Rec: 07/10/18 12:38 EA [id number]) Functional Tests Other 1 Name of Test Hand account representative dynamometer: L 32 ; R 32 Score Normal (28) PT-OP-F Manual Assessment Start: 07/09/18 16:21 Freq: Status: Active Protocol: Document 07/09/18 17:35 EA (Rec: 07/10/18 12:38 EA [id number]) Manual Assessments Soft Tissue Assessment Soft Tissue Mobility Assessment Tight right scapular borders, scalenes, traps, rhomboids. Tight shoulder internal rotators. Joint Mobility Assessment Joint Mobility Assessment Normal joint mobility on shoulder, CMC, wrists. PT-OP-J Posture/Palpation/Skin Start: 07/09/18 16:21 Freq: Status: Active Protocol: Document 07/09/18 17:35 EA (Rec: 07/10/18 12:38 EA [id number]) Posture Evaluation Position Standing Evaluation View Lateral Head/C-Spine Posture Extended Forward Head Shoulder Posture (L) Rounded (L) Forward Scapula Posture (L) Protracted (R) Protracted Comments Posture Comments Slight fwd head with shoulders internally rotated. Palpation Assessment Location One Palpation Location Rhomboids, mid traps, right scapular muscles. Palpation Findings Tenderness Trigger Point Palpation Details Both rhomboids PT-OP-K Range of Motion Start: 07/09/18 16:21 Freq: Status: Active Protocol: Document 07/09/18 17:35 EA (Rec: 07/10/18 12:15 EA [id number]) Cervical Spine Range of Motion Cervical Spine Active Percentage Testing Position Sitting Flexion 90 Extension 85 Rotation Left 85 Rotation Right 85 Lateral Flexion Left 80 Lateral Flexion Right 80 ROM Limitations Soft Tissue Tightness Pain Shoulder Goniometric Range of Motion Shoulder Measured in Degrees Right Active Shoulder ROM WFL Yes Elbow/Forearm Range of Motion Elbow/Forearm Measured in Degrees Right Active Elbow/Forearm ROM WFL Yes Thumb Goniometric Range of Motion Thumb Measured in Degrees Left Thumb ROM WFL Yes PT-OP-L Special Tests Start: 07/09/18 16:21 Freq: Status: Active Protocol: Document 07/09/18 17:35 EA (Rec: 07/10/18 12:15 EA [id number]) Special Tests Cervical Spine Special Tests Upper Limb Tension Test Test Results + ulnar Foraminal Compression Test Results - Vertebral Artery Test Results - Shoulder Special Tests Leung Santy Impingement Test Results - Elevation Impingement Test Results - Neural Special Tests- Lower Body Other- 1 Test Results [place] and Lala tests + Other Special Tests Special Tests Trigger point jump sign: positive at right medial scapular border PT-OP-M Strength Start: 07/09/18 16:21 Freq: Status: Active Protocol: Document 07/09/18 17:35 EA (Rec: 07/10/18 12:15 EA [id number]) Cervical Spine Strength Cervical Spine Manual Muscle Testing Testing Position Supine Reason Not Measured WFL Shoulder Strength Shoulder Manual Muscle Testing Right Reason Not Measured WFL Wrist Strength Wrist Manual Muscle Testing Right Reason Not Measured WFL Finger/Thumb Strength Finger Manual Muscle Testing Right Thumb Reason Not Measured WFL Hand Demolition Engineer/Pinch Strength Hand Dominance Hand Dominance Right PT-OP-Q Treatments Start: 07/09/18 16:21 Freq: Status: Active Protocol: Document 07/17/18 13:00 DLM (Rec: 07/17/18 15:38 DLM [id number]) Cardio Equipment Upper Body Ergometer (UBE) Duration (Minutes) 5 Height 5 Other warm up Therapeutic Exercises Supine Exercises 1 Supine Exercise Name Foam roll postural stretch Equipment Used black foam roll Comments UE's at sides, 90 degrees and over-head Prone Exercises 2 Prone Exercise Name Shoulder flexion/Y Reps/Minutes 15 reps x 2 1 Prone Exercise Name Horiz ABD Reps/Minutes x 15 reps Sitting Exercises 2 Sitting Exercise Name Sitted chest stretch Reps/Minutes 30 sec hold x 3 reps 1 Sitting Exercise Name rhomboids, traps stretch Reps/Minutes 30 sec hold x 3 reps Manual Therapy Treatment Soft Tissue Mobilization 2 Body Location sub-occipital release Mobilization Type Sustained Pressure Intensity/Depth Moderate Body Position Supine 1 Body Location Rhomboids, scapular borders Mobilization Type Rolling Strumming Sustained Pressure Trigger Point Release Intensity/Depth Moderate Body Position Supine Manual Traction Cervical Body Position Supine Reps/Duration 3 reps Manual Techniques 1 Type manual stretches Body Location cervical, UT's Body Position Supine Self-Care/Home Management Treatment Education Other Education pt brought in home Estim unit from her friend, instructed her in use, could only get channel one to work today, Conventional Mode with width 120 and Rate 80 PT-OP-T Assessment and Plan Start: 07/09/18 16:21 Freq: Status: Active Protocol: Document 07/17/18 13:00 DLM (Rec: 07/17/18 15:38 DLM [id number]) Physical Therapy Assessment Goals Four Impairment No HEP in place Dope Heater Goal (LTG) Patient will comply to recommended HEP safe and independent LTG Duration 3 wks Three Impairment Impaired gardening activity tolerance Senior Care Goal (LTG) Patient will report no gardening activity limitation LTG Duration 5 wks Two Impairment Impaired writing Dope Heater Goal (LTG) Patient will report no difficulty in writing activities. LTG Duration 4 wks One Impairment Impaired sleeping Dope Heater Goal (LTG) Patient will sleep with no waking up in the middle of the night and will wake up in the morning without arm discomfort LTG Duration 4 wks Assessment Summary Assessment She tolerated her exercises well. She reports she has been more aware of her posture at home. Pt wanting to try her friends home Estim to manage her pain at home. Soft tissue tightness improved with treatment. Able to reproduce her right UE symptoms with palpation right side of C6/7. Physical Therapy Plan Frequency and Duration Frequency of Treatment 2x/Week Duration of Treatment 8 wks Plan of Care Start Date 07/09/18 Plan of Care End Date 09/03/18 Therapeutic Interventions Therapeutic Interventions Home Exercise Program Manual Therapy Neuromuscular Re-education Patient/Caregiver Education Self-Care/Home Management Soft Tissue Mobilization Taping Therapeutic Exercises Modalities Cold Pack/Ice Massage Electric Stimulation Hot Packs Paraffin Bath Next Visit Focus/Plan Next Note Type Treatment Note Next Visit Plan STM in upper/mid thoracic to manage pain
--- NOTE | 2018-07-19 12:00 | PT.OTN ---
Current Diagnoses Anesthesia of skin (07/19/18) Physical Therapy Treatment Note PT-OP-A Visit Information Start: 07/09/18 16:21 Freq: Status: Active Protocol: Document 07/19/18 08:57 AMB (Rec: 07/19/18 09:00 AMB [id number]) Out-Patient Physical Therapy Visit Information Visit Information Visit Type Treatment Note Visit Start Time 08:50 Visit Stop Time 09:30 Total Visit Minutes 50 Visit Number 4 PT-OP-B Current Condition Start: 07/09/18 16:21 Freq: Status: Active Protocol: Document 07/09/18 17:35 EA (Rec: 07/10/18 07:30 EA [id number]) Current Condition History of Current Condition Onset Date June 29, 2018 Current Complaints Mid back pain w/ tingling radiates down R arm and dorsal 3rd and 4th finger History of Current Condition Patient reports current condition started more than 6 months ago and which exacerbates more than a week ago after [place] her [place]; states advil and helps to alleviate pain and tingling but was not completely eliminate. Patient reports pain and tingling mostly happened upon waking up in the morning or in the middle of the evening and decreases once strated using it during the day. She also mentioned that arm pain and tingling mostly accompanied with mid back pain. She denies recent diagnostic imaging. She denies any related injury in the past. Prior Treatments and Tests Advil for pain Future Testing and Treatments Planned None identified. Treatment Goals Patient/Caregiver Goals Patient wants to get rid of the pain so she could use it for writing and be able sleep without bothering from pain and abnormal sensation to right UE. 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 Functional Limitations- Work/School Unable to work due to right shoulder and hand discomfort. Functional Limitations- Recreation/ Difficulty with gardening. Hobbies Personal Factors Other Personal Factors That May Effect None identified. Therapy/Recovery PT-OP-C Subjective Start: 07/09/18 16:21 Freq: Status: Active Protocol: Document 07/19/18 08:57 AMB (Rec: 07/19/18 09:00 AMB [id number]) OP-PT Subjective Patient Comments Patient Comments Pt went to the ER yesterday. Had a lot of pain going down the right arm. PT-OP-E Functional Tests Start: 07/09/18 16:21 Freq: Status: Active Protocol: Document 07/09/18 17:35 EA (Rec: 07/10/18 12:38 EA [id number]) Functional Tests Other 1 Name of Test Hand jewel staker dynamometer: L 32 ; R 32 Score Normal (28) PT-OP-F Manual Assessment Start: 07/09/18 16:21 Freq: Status: Active Protocol: Document 07/09/18 17:35 EA (Rec: 07/10/18 12:38 EA [id number]) Manual Assessments Soft Tissue Assessment Soft Tissue Mobility Assessment Tight right scapular borders, scalenes, traps, rhomboids. Tight shoulder internal rotators. Joint Mobility Assessment Joint Mobility Assessment Normal joint mobility on shoulder, CMC, wrists. PT-OP-J Posture/Palpation/Skin Start: 07/09/18 16:21 Freq: Status: Active Protocol: Document 07/09/18 17:35 EA (Rec: 07/10/18 12:38 EA [id number]) Posture Evaluation Position Standing Evaluation View Lateral Head/C-Spine Posture Extended Forward Head Shoulder Posture (L) Rounded (L) Forward Scapula Posture (L) Protracted (R) Protracted Comments Posture Comments Slight fwd head with shoulders internally rotated. Palpation Assessment Location One Palpation Location Rhomboids, mid traps, right scapular muscles. Palpation Findings Tenderness Trigger Point Palpation Details Both rhomboids PT-OP-K Range of Motion Start: 07/09/18 16:21 Freq: Status: Active Protocol: Document 07/09/18 17:35 EA (Rec: 07/10/18 12:15 EA [id number]) Cervical Spine Range of Motion Cervical Spine Active Percentage Testing Position Sitting Flexion 90 Extension 85 Rotation Left 85 Rotation Right 85 Lateral Flexion Left 80 Lateral Flexion Right 80 ROM Limitations Soft Tissue Tightness Pain Shoulder Goniometric Range of Motion Shoulder Measured in Degrees Right Active Shoulder ROM WFL Yes Elbow/Forearm Range of Motion Elbow/Forearm Measured in Degrees Right Active Elbow/Forearm ROM WFL Yes Thumb Goniometric Range of Motion Thumb Measured in Degrees Left Thumb ROM WFL Yes PT-OP-L Special Tests Start: 07/09/18 16:21 Freq: Status: Active Protocol: Document 07/09/18 17:35 EA (Rec: 07/10/18 12:15 EA [id number]) Special Tests Cervical Spine Special Tests Upper Limb Tension Test Test Results + ulnar Foraminal Compression Test Results - Vertebral Artery Test Results - Shoulder Special Tests Leung Santy Impingement Test Results - Elevation Impingement Test Results - Neural Special Tests- Lower Body Other- 1 Test Results [place] and Lala tests + Other Special Tests Special Tests Trigger point jump sign: positive at right medial scapular border PT-OP-M Strength Start: 07/09/18 16:21 Freq: Status: Active Protocol: Document 07/09/18 17:35 EA (Rec: 07/10/18 12:15 EA [id number]) Cervical Spine Strength Cervical Spine Manual Muscle Testing Testing Position Supine Reason Not Measured WFL Shoulder Strength Shoulder Manual Muscle Testing Right Reason Not Measured WFL Wrist Strength Wrist Manual Muscle Testing Right Reason Not Measured WFL Finger/Thumb Strength Finger Manual Muscle Testing Right Thumb Reason Not Measured WFL Hand Mail 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/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 Strength Hand Dominance Hand Dominance Right PT-OP-Q Treatments Start: 07/09/18 16:21 Freq: Status: Active Protocol: Document 07/19/18 08:45 AMB (Rec: 07/19/18 17:22 AMB [email or web address]) Cardio Equipment Upper Body Ergometer (UBE) Duration (Minutes) 5 Height 5 Other warm up Therapeutic Exercises Prone Exercises 2 Prone Exercise Name Shoulder flexion/Y Resistance AROM Reps/Minutes 15 reps x 2 Sitting Exercises 1 Sitting Exercise Name rhomboids, traps stretch Reps/Minutes 30 sec hold x 3 reps Manual Therapy Treatment Soft Tissue Mobilization 2 Body Location sub-occipital release Mobilization Type Sustained Pressure Intensity/Depth Moderate Body Position Supine 1 Body Location Rhomboids, scapular borders Mobilization Type Rolling Strumming Sustained Pressure Trigger Point Release Intensity/Depth Moderate Body Position Supine PT-OP-R Modalities Start: 07/09/18 16:21 Freq: Status: Active Protocol: Document 07/19/18 08:45 AMB (Rec: 07/19/18 17:23 AMB [email or web address]) Hot Pack/Cold Pack Treatment Hot Pack Location upper back Patient Position Hooklying Treatment Duration (minutes) 15 PT-OP-T Assessment and Plan Start: 07/09/18 16:21 Freq: Status: Active Protocol: Document 07/19/18 08:45 AMB (Rec: 07/19/18 13:13 AMB [id number]) Physical Therapy Assessment Assessment Summary Assessment Pt tolerated exercise well, continues to have right sided radiating down her right arm. She is working to be very mindful of her posture. Sleeping continues to flare her pain. Physical Therapy Plan Next Visit Focus/Plan Next Note Type Treatment Note Next Visit Plan STM in upper/mid thoracic to manage pain
--- NOTE | 2018-07-22 12:14 | PT.OTN ---
Current Diagnoses Anesthesia of skin (07/22/18) Physical Therapy Treatment Note PT-OP-A Visit Information Start: 07/09/18 16:21 Freq: Status: Active Protocol: Document 07/22/18 10:18 EA (Rec: 07/22/18 10:31 EA [id number]) Out-Patient Physical Therapy Visit Information Visit Information Visit Type Treatment Note Visit Start Time 09:45 Visit Stop Time 10:30 Visit Number 5 PT-OP-B Current Condition Start: 07/09/18 16:21 Freq: Status: Active Protocol: Document 07/09/18 17:35 EA (Rec: 07/10/18 07:30 EA [id number]) Current Condition History of Current Condition Onset Date June 29, 2018 Current Complaints Mid back pain w/ tingling radiates down R arm and dorsal 3rd and 4th finger History of Current Condition Patient reports current condition started more than 6 months ago and which exacerbates more than a week ago after prunning [place] her backyard; states advil and helps to alleviate pain and tingling but was not completely eliminate. Patient reports pain and tingling mostly happened upon waking up in the morning or in the middle of the evening and decreases once strated using it during the day. She also mentioned that arm pain and tingling mostly accompanied with mid back pain. She denies recent diagnostic imaging. She denies any related injury in the past. Prior Treatments and Tests Advil for pain Future Testing and Treatments Planned None identified. Treatment Goals Patient/Caregiver Goals Patient wants to get rid of the pain so she could use it for writing and be able sleep without bothering from pain and abnormal sensation to right UE. 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 Functional Limitations- Work/School Unable to work due to right shoulder and hand discomfort. Functional Limitations- Recreation/ Difficulty with gardening. Hobbies Personal Factors Other Personal Factors That May Effect None identified. Therapy/Recovery PT-OP-C Subjective Start: 07/09/18 16:21 Freq: Status: Active Protocol: Document 07/22/18 10:18 EA (Rec: 07/22/18 10:31 EA [id number]) OP-PT Subjective Patient Comments Patient Comments Pt reports went to [place] on July 18 due to back spasms after long hour of gardening; states [facility] gave her medication that improved symptoms after. She feel coming to PT helps by improving her posture and feels heat, IFC, and manual therapy. She mentioned that her room mate lend her PT stuff like TENS and helps her. PT-OP-E Functional Tests Start: 07/09/18 16:21 Freq: Status: Active Protocol: Document 07/09/18 17:35 EA (Rec: 07/10/18 12:38 EA [id number]) Functional Tests Other 1 Name of Test Hand timber bucker dynamometer: L 32 ; R 32 Score Normal (28) PT-OP-F Manual Assessment Start: 07/09/18 16:21 Freq: Status: Active Protocol: Document 07/09/18 17:35 EA (Rec: 07/10/18 12:38 EA [id number]) Manual Assessments Soft Tissue Assessment Soft Tissue Mobility Assessment Tight right scapular borders, scalenes, traps, rhomboids. Tight shoulder internal rotators. Joint Mobility Assessment Joint Mobility Assessment Normal joint mobility on shoulder, CMC, wrists. PT-OP-J Posture/Palpation/Skin Start: 07/09/18 16:21 Freq: Status: Active Protocol: Document 07/09/18 17:35 EA (Rec: 07/10/18 12:38 EA [id number]) Posture Evaluation Position Standing Evaluation View Lateral Head/C-Spine Posture Extended Forward Head Shoulder Posture (L) Rounded (L) Forward Scapula Posture (L) Protracted (R) Protracted Comments Posture Comments Slight fwd head with shoulders internally rotated. Palpation Assessment Location One Palpation Location Rhomboids, mid traps, right scapular muscles. Palpation Findings Tenderness Trigger Point Palpation Details Both rhomboids PT-OP-K Range of Motion Start: 07/09/18 16:21 Freq: Status: Active Protocol: Document 07/09/18 17:35 EA (Rec: 07/10/18 12:15 EA [id number]) Cervical Spine Range of Motion Cervical Spine Active Percentage Testing Position Sitting Flexion 90 Extension 85 Rotation Left 85 Rotation Right 85 Lateral Flexion Left 80 Lateral Flexion Right 80 ROM Limitations Soft Tissue Tightness Pain Shoulder Goniometric Range of Motion Shoulder Measured in Degrees Right Active Shoulder ROM WFL Yes Elbow/Forearm Range of Motion Elbow/Forearm Measured in Degrees Right Active Elbow/Forearm ROM WFL Yes Thumb Goniometric Range of Motion Thumb Measured in Degrees Left Thumb ROM WFL Yes PT-OP-L Special Tests Start: 07/09/18 16:21 Freq: Status: Active Protocol: Document 07/09/18 17:35 EA (Rec: 07/10/18 12:15 EA [id number]) Special Tests Cervical Spine Special Tests Upper Limb Tension Test Test Results + ulnar Foraminal Compression Test Results - Vertebral Artery Test Results - Shoulder Special Tests Leung Santy Impingement Test Results - Elevation Impingement Test Results - Neural Special Tests- Lower Body Other- 1 Test Results [place] and Lala tests + Other Special Tests Special Tests Trigger point jump sign: positive at right medial scapular border PT-OP-M Strength Start: 07/09/18 16:21 Freq: Status: Active Protocol: Document 07/09/18 17:35 EA (Rec: 07/10/18 12:15 EA [id number]) Cervical Spine Strength Cervical Spine Manual Muscle Testing Testing Position Supine Reason Not Measured WFL Shoulder Strength Shoulder Manual Muscle Testing Right Reason Not Measured WFL Wrist Strength Wrist Manual Muscle Testing Right Reason Not Measured WFL Finger/Thumb Strength Finger Manual Muscle Testing Right Thumb Reason Not Measured WFL Hand [employer]/Pinch Strength Hand Dominance Hand Dominance Right PT-OP-Q Treatments Start: 07/09/18 16:21 Freq: Status: Active Protocol: Document 07/22/18 10:18 EA (Rec: 07/22/18 10:31 EA [id number]) Cardio Equipment Upper Body Ergometer (UBE) Duration (Minutes) 5 Height 5 Other warm up Therapeutic Exercises Prone Exercises 2 Prone Exercise Name Shoulder flexion/Y Resistance AROM Reps/Minutes 15 reps x 2 1 Prone Exercise Name Horiz ABD Reps/Minutes x 15 reps Sitting Exercises 2 Sitting Exercise Name Sitted chest stretch Reps/Minutes 30 sec hold x 3 reps 1 Sitting Exercise Name rhomboids, traps stretch Reps/Minutes 30 sec hold x 3 reps Standing Exercises 2 Standing Exercise Name Wall posture with t-bar shoulder flexion Reps/Minutes x 15 reps Other Exercises 2 Other Exercise Name Mid-row Resistance Lv1 Reps/Minutes x 15 reps 1 Other Exercise Name Shoulder extension Resistance Lv 1 Reps/Minutes x 15 reps Manual Therapy Treatment Soft Tissue Mobilization 1 Body Location Rhomboids, scapular borders Mobilization Type Rolling Strumming Sustained Pressure Trigger Point Release Intensity/Depth Moderate Body Position Supine PT-OP-R Modalities Start: 07/09/18 16:21 Freq: Status: Active Protocol: Document 07/22/18 10:18 EA (Rec: 07/22/18 10:31 EA [id number]) Electric Stimulation Electric Stimulation Interferential Current (IFC) Body Location rhomboids, T-major, infra Duration (Minutes) 15 Intensity 25 Patient Position Prone Combined With Heat/Cold Hot Pack PT-OP-T Assessment and Plan Start: 07/09/18 16:21 Freq: Status: Active Protocol: Document 07/22/18 10:18 EA (Rec: 07/22/18 10:31 EA [id number]) Physical Therapy Assessment Assessment Summary Assessment Pt shows no discomfort during exercises or compensatory motion; however requires cues for posture and form. Tingling sensation to left arm with manual PT to right scapular border. I recommended patient to see her doctor if she feels PT is not helping her. Physical Therapy Plan Next Visit Focus/Plan Next Note Type Treatment Note Next Visit Plan STM in upper/mid thoracic to manage pain
--- NOTE | 2018-07-29 16:00 | PT.OTN ---
Current Diagnoses Anesthesia of skin (07/29/18) Physical Therapy Treatment Note PT-OP-A Visit Information Start: 07/09/18 16:21 Freq: Status: Active Protocol: Document 07/29/18 09:00 AMB (Rec: 07/29/18 09:13 AMB [id number]) Out-Patient Physical Therapy Visit Information Visit Information Visit Type Treatment Note Visit Start Time 09:00 Visit Stop Time 10:30 Visit Number 6 PT-OP-B Current Condition Start: 07/09/18 16:21 Freq: Status: Active Protocol: Document 07/09/18 17:35 EA (Rec: 07/10/18 07:30 EA [id number]) Current Condition History of Current Condition Onset Date June 29, 2018 Current Complaints Mid back pain w/ tingling radiates down R arm and dorsal 3rd and 4th finger History of Current Condition Patient reports current condition started more than 6 months ago and which exacerbates more than a week ago after prunning on her backyard; states advil and helps to alleviate pain and tingling but was not completely eliminate. Patient reports pain and tingling mostly happened upon waking up in the morning or in the middle of the evening and decreases once strated using it during the day. She also mentioned that arm pain and tingling mostly accompanied with mid back pain. She denies recent diagnostic imaging. She denies any related injury in the past. Prior Treatments and Tests Advil for pain Future Testing and Treatments Planned None identified. Treatment Goals Patient/Caregiver Goals Patient wants to get rid of the pain so she could use it for writing and be able sleep without bothering from pain and abnormal sensation to right UE. 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 Functional Limitations- Work/School Unable to work due to right shoulder and hand discomfort. Functional Limitations- Recreation/ Difficulty with gardening. Hobbies Personal Factors Other Personal Factors That May Effect None identified. Therapy/Recovery PT-OP-C Subjective Start: 07/09/18 16:21 Freq: Status: Active Protocol: Document 07/29/18 09:00 AMB (Rec: 07/29/18 09:13 AMB [id number]) OP-PT Subjective Patient Comments Patient Comments Pt reports she is waking up after 3-4 hours of sleep every night now due to the pain in her arm/hand numbness. 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 Tight shoulder internal rotators. Joint Mobility Assessment Joint Mobility Assessment Normal joint mobility on shoulder, CMC, wrists. PT-OP-J Posture/Palpation/Skin Start: 07/09/18 16:21 Freq: Status: Active Protocol: Document 07/09/18 17:35 EA (Rec: 07/10/18 12:38 EA [id number]) Posture Evaluation Position Standing Evaluation View Lateral Head/C-Spine Posture Extended Forward Head Shoulder Posture (L) Rounded (L) Forward Scapula Posture (L) Protracted (R) Protracted Comments Posture Comments Slight fwd head with shoulders internally rotated. Palpation Assessment Location One Palpation Location Rhomboids, mid traps, right scapular muscles. Palpation Findings Tenderness Trigger Point Palpation Details Both rhomboids PT-OP-K Range of Motion Start: 07/09/18 16:21 Freq: Status: Active Protocol: Document 07/09/18 17:35 EA (Rec: 07/10/18 12:15 EA [id number]) Cervical Spine Range of Motion Cervical Spine Active Percentage Testing Position Sitting Flexion 90 Extension 85 Rotation Left 85 Rotation Right 85 Lateral Flexion Left 80 Lateral Flexion Right 80 ROM Limitations Soft Tissue Tightness Pain Shoulder Goniometric Range of Motion Shoulder Measured in Degrees Right Active Shoulder ROM WFL Yes Elbow/Forearm Range of Motion Elbow/Forearm Measured in Degrees Right Active Elbow/Forearm ROM WFL Yes Thumb Goniometric Range of Motion Thumb Measured in Degrees Left Thumb ROM WFL Yes PT-OP-L Special Tests Start: 07/09/18 16:21 Freq: Status: Active Protocol: Document 07/09/18 17:35 EA (Rec: 07/10/18 12:15 EA [id number]) Special Tests Cervical Spine Special Tests Upper Limb Tension Test Test Results + ulnar Foraminal Compression Test Results - Vertebral Artery Test Results - Shoulder Special Tests Leung Santy Impingement Test Results - Elevation Impingement Test Results - Neural Special Tests- Lower Body Other- 1 Test Results Ju[place]arl[place] and Lala tests + Other Special Tests Special Tests Trigger point jump sign: positive at right medial scapular border PT-OP-M Strength Start: 07/09/18 16:21 Freq: Status: Active Protocol: Document 07/09/18 17:35 EA (Rec: 07/10/18 12:15 EA [id number]) Cervical Spine Strength Cervical Spine Manual Muscle Testing Testing Position Supine Reason Not Measured WFL Shoulder Strength Shoulder Manual Muscle Testing Right Reason Not Measured WFL Wrist Strength Wrist Manual Muscle Testing Right Reason Not Measured WFL Finger/Thumb Strength Finger Manual Muscle Testing Right Thumb Reason Not Measured WFL 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 Strength Hand Dominance Hand Dominance Right PT-OP-Q Treatments Start: 07/09/18 16:21 Freq: Status: Active Protocol: Document 07/29/18 09:00 AMB (Rec: 07/29/18 15:59 AMB [email or web address]) Cardio Equipment Upper Body Ergometer (UBE) Duration (Minutes) 5 Height 5 Other warm up Therapeutic Exercises Standing Exercises 2 Standing Exercise Name Wall posture with t-bar shoulder flexion Reps/Minutes x 15 reps Other Exercises 2 Other Exercise Name Mid-row Resistance Lv1 Reps/Minutes x 15 reps 1 Other Exercise Name Shoulder extension Resistance Lv 1 Reps/Minutes x 15 reps Manual Therapy Treatment Soft Tissue Mobilization 2 Body Location sub-occipital release Mobilization Type Sustained Pressure Intensity/Depth Moderate Body Position Supine 1 Body Location Rhomboids, scapular borders Mobilization Type Rolling Strumming Sustained Pressure Trigger Point Release Intensity/Depth Moderate Body Position Supine PT-OP-R Modalities Start: 07/09/18 16:21 Freq: Status: Active Protocol: Document 07/29/18 09:00 AMB (Rec: 07/29/18 09:47 AMB [email or web address]) Hot Pack/Cold Pack Treatment Hot Pack Location upper back Patient Position Hooklying Treatment Duration (minutes) 15 PT-OP-T Assessment and Plan Start: 07/09/18 16:21 Freq: Status: Active Protocol: Document 07/29/18 09:00 AMB (Rec: 07/29/18 09:47 AMB [email or web address]) Physical Therapy Assessment Assessment Summary Assessment Pt with numbness/tingling in hand that diminishes with both exercise and manual therapy, but is exacerbated by prolonged positions especially sleeping. Increased sx with wrist extension and tinel's over carpal tunnel. Extensive education on propping with sleep to avoid numbness as much as possible. Physical Therapy Plan Next Visit Focus/Plan Next Note Type Treatment Note Next Visit Plan STM in upper/mid thoracic to manage pain
--- NOTE | 2018-08-01 15:28 | PT.OTN ---
Current Diagnoses Anesthesia of skin (08/01/18) Physical Therapy Treatment Note PT-OP-A Visit Information Start: 07/09/18 16:21 Freq: Status: Active Protocol: Document 08/01/18 09:30 AMB (Rec: 08/01/18 15:26 AMB [email or web address]) Out-Patient Physical Therapy Visit Information Visit Information Visit Type Treatment Note Visit Start Time 09:30 Visit Stop Time 10:15 Visit Number 7 PT-OP-B Current Condition Start: 07/09/18 16:21 Freq: Status: Active Protocol: Document 07/09/18 17:35 EA (Rec: 07/10/18 07:30 EA [id number]) Current Condition History of Current Condition Onset Date June 29, 2018 Current Complaints Mid back pain w/ tingling radiates down R arm and dorsal 3rd and 4th finger History of Current Condition Patient reports current condition started more than 6 months ago and which exacerbates more than a week ago after [place] her backyard; states advil and helps to alleviate pain and tingling but was not completely eliminate. Patient reports pain and tingling mostly happened upon waking up in the morning or in the middle of the evening and decreases once strated using it during the day. She also mentioned that arm pain and tingling mostly accompanied with mid back pain. She denies recent diagnostic imaging. She denies any related injury in the past. Prior Treatments and Tests Advil for pain Future Testing and Treatments Planned None identified. Treatment Goals Patient/Caregiver Goals Patient wants to get rid of the pain so she could use it for writing and be able sleep without bothering from pain and abnormal sensation to right UE. 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 Functional Limitations- Work/School Unable to work due to right shoulder and hand discomfort. Functional Limitations- Recreation/ Difficulty with gardening. Hobbies Personal Factors Other Personal Factors That May Effect None identified. Therapy/Recovery PT-OP-C Subjective Start: 07/09/18 16:21 Freq: Status: Active Protocol: Document 08/01/18 09:30 AMB (Rec: 08/01/18 15:26 AMB [email or web address]) OP-PT Subjective Patient Comments Patient Comments Pt continues to have right hand numbness that is worst with sleeping and gripping. PT-OP-E Functional Tests Start: 07/09/18 16:21 Freq: Status: Active Protocol: Document 07/09/18 17:35 EA (Rec: 07/10/18 12:38 EA [id number]) Functional Tests Other 1 Name of Test Hand commodity analyst dynamometer: L 32 ; R 32 Score Normal (28) PT-OP-F Manual Assessment Start: 07/09/18 16:21 Freq: Status: Active Protocol: Document 07/09/18 17:35 EA (Rec: 07/10/18 12:38 EA [id number]) Manual Assessments Soft Tissue Assessment Soft Tissue Mobility Assessment Tight right scapular borders, scalenes, traps, rhomboids. Tight shoulder internal rotators. Joint Mobility Assessment Joint Mobility Assessment Normal joint mobility on shoulder, CMC, wrists. PT-OP-J Posture/Palpation/Skin Start: 07/09/18 16:21 Freq: Status: Active Protocol: Document 07/09/18 17:35 EA (Rec: 07/10/18 12:38 EA [id number]) Posture Evaluation Position Standing Evaluation View Lateral Head/C-Spine Posture Extended Forward Head Shoulder Posture (L) Rounded (L) Forward Scapula Posture (L) Protracted (R) Protracted Comments Posture Comments Slight fwd head with shoulders internally rotated. Palpation Assessment Location One Palpation Location Rhomboids, mid traps, right scapular muscles. Palpation Findings Tenderness Trigger Point Palpation Details Both rhomboids PT-OP-K Range of Motion Start: 07/09/18 16:21 Freq: Status: Active Protocol: Document 07/09/18 17:35 EA (Rec: 07/10/18 12:15 EA [id number]) Cervical Spine Range of Motion Cervical Spine Active Percentage Testing Position Sitting Flexion 90 Extension 85 Rotation Left 85 Rotation Right 85 Lateral Flexion Left 80 Lateral Flexion Right 80 ROM Limitations Soft Tissue Tightness Pain Shoulder Goniometric Range of Motion Shoulder Measured in Degrees Right Active Shoulder ROM WFL Yes Elbow/Forearm Range of Motion Elbow/Forearm Measured in Degrees Right Active Elbow/Forearm ROM WFL Yes Thumb Goniometric Range of Motion Thumb Measured in Degrees Left Thumb ROM WFL Yes PT-OP-L Special Tests Start: 07/09/18 16:21 Freq: Status: Active Protocol: Document 07/09/18 17:35 EA (Rec: 07/10/18 12:15 EA [id number]) Special Tests Cervical Spine Special Tests Upper Limb Tension Test Test Results + ulnar Foraminal Compression Test Results - Vertebral Artery Test Results - Shoulder Special Tests Leung Santy Impingement Test Results - Elevation Impingement Test Results - Neural Special Tests- Lower Body Other- 1 Test Results Juancarlos and Lala tests + Other Special Tests Special Tests Trigger point jump sign: positive at right medial scapular border PT-OP-M Strength Start: 07/09/18 16:21 Freq: Status: Active Protocol: Document 07/09/18 17:35 EA (Rec: 07/10/18 12:15 EA [id number]) Cervical Spine Strength Cervical Spine Manual Muscle Testing Testing Position Supine Reason Not Measured WFL Shoulder Strength Shoulder Manual Muscle Testing Right Reason Not Measured WFL Wrist Strength Wrist Manual Muscle Testing Right Reason Not Measured WFL Finger/Thumb Strength Finger Manual Muscle Testing Right Thumb Reason Not Measured WFL Hand Traffic Routing Engineer/Pinch Strength Hand Dominance Hand Dominance Right PT-OP-Q Treatments Start: 07/09/18 16:21 Freq: Status: Active Protocol: Document 08/01/18 09:30 AMB (Rec: 08/01/18 15:26 AMB [email or web address]) Cardio Equipment Upper Body Ergometer (UBE) Duration (Minutes) 5 Height 5 Other warm up Therapeutic Exercises Sitting Exercises 3 Sitting Exercise Name scalene stretch Reps/Minutes 30x2 1 Sitting Exercise Name rhomboids, traps stretch Reps/Minutes 30 sec hold x 3 reps Standing Exercises 1 Standing Exercise Name rows Resistance #2 t band 2 Standing Exercise Name Wall posture with t-bar shoulder flexion Reps/Minutes x 15 reps Manual Therapy Treatment Soft Tissue Mobilization 1 Body Location R scalenes, UT, Rhomboids, scapular borders Mobilization Type Rolling Strumming Sustained Pressure Trigger Point Release Intensity/Depth Moderate Body Position Supine PT-OP-R Modalities Start: 07/09/18 16:21 Freq: Status: Active Protocol: Document 08/01/18 09:45 AMB (Rec: 08/01/18 15:28 AMB [email or web address]) Electric Stimulation Electric Stimulation Interferential Current (IFC) Body Location R c-spine, upper scap Duration (Minutes) 15 Patient Position Supine Combined With Heat/Cold Hot Pack PT-OP-T Assessment and Plan Start: 07/09/18 16:21 Freq: Status: Active Protocol: Document 08/01/18 09:30 AMB (Rec: 08/01/18 15:26 AMB [email or web address]) Physical Therapy Assessment Assessment Summary Assessment Pt felt that numbness was worse with gripping today, which is a different presentation today. Pt did have increased symptoms with medial, radial, nerve testing and lala test today, but was likely more irritated so all testing was positive for increased symptoms. Pt did have sx that radiated into scapula and down arm with scalene palpation, so given scalene stretch for HEP. Physical Therapy Plan Next Visit Focus/Plan Next Note Type Treatment Note Next Visit Plan STM in upper/mid thoracic and scalenes to manage pain
--- NOTE | 2018-08-06 13:02 | PT.OTN ---
Current Diagnoses Anesthesia of skin (08/06/18) Physical Therapy Treatment Note PT-OP-A Visit Information Start: 07/09/18 16:21 Freq: Status: Active Protocol: Document 08/06/18 12:53 SA (Rec: 08/06/18 13:01 SA [email or web address]) Out-Patient Physical Therapy Visit Information Visit Information Visit Type Treatment Note Visit Start Time 12:15 Visit Stop Time 13:02 Visit Number 8 Number of MASTICATOR Visits 1 PT-OP-B Current Condition Start: 07/09/18 16:21 Freq: Status: Active Protocol: Document 07/09/18 17:35 EA (Rec: 07/10/18 07:30 EA [id number]) Current Condition History of Current Condition Onset Date June 29, 2018 Current Complaints Mid back pain w/ tingling radiates down R arm and dorsal 3rd and 4th finger History of Current Condition Patient reports current condition started more than 6 months ago and which exacerbates more than a week ago after [place] her [place]; states advil and helps to alleviate pain and tingling but was not completely eliminate. Patient reports pain and tingling mostly happened upon waking up in the morning or in the middle of the evening and decreases once strated using it during the day. She also mentioned that arm pain and tingling mostly accompanied with mid back pain. She denies recent diagnostic imaging. She denies any related injury in the past. Prior Treatments and Tests Advil for pain Future Testing and Treatments Planned None identified. Treatment Goals Patient/Caregiver Goals Patient wants to get rid of the pain so she could use it for writing and be able sleep without bothering from pain and abnormal sensation to right UE. 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 Functional Limitations- Work/School Unable to work due to right shoulder and hand discomfort. Functional Limitations- Recreation/ Difficulty with gardening. Hobbies Personal Factors Other Personal Factors That May Effect None identified. Therapy/Recovery PT-OP-C Subjective Start: 07/09/18 16:21 Freq: Status: Active Protocol: Document 08/06/18 12:53 SA (Rec: 08/06/18 13:01 SA [email or web address]) OP-PT Subjective Patient Comments Patient Comments Pt states she still has difficulty sleeping and R hand numbness and heaviness. Doing stretches daily. PT-OP-E Functional Tests Start: 07/09/18 16:21 Freq: Status: Active Protocol: Document 07/09/18 17:35 EA (Rec: 07/10/18 12:38 EA [id number]) Functional Tests Other 1 Name of Test Hand comsec manager dynamometer: L 32 ; R 32 Score Normal (28) PT-OP-F Manual Assessment Start: 07/09/18 16:21 Freq: Status: Active Protocol: Document 07/09/18 17:35 EA (Rec: 07/10/18 12:38 EA [id number]) Manual Assessments Soft Tissue Assessment Soft Tissue Mobility Assessment Tight right scapular borders, scalenes, traps, rhomboids. Tight shoulder internal rotators. Joint Mobility Assessment Joint Mobility Assessment Normal joint mobility on shoulder, CMC, wrists. PT-OP-J Posture/Palpation/Skin Start: 07/09/18 16:21 Freq: Status: Active Protocol: Document 07/09/18 17:35 EA (Rec: 07/10/18 12:38 EA [id number]) Posture Evaluation Position Standing Evaluation View Lateral Head/C-Spine Posture Extended Forward Head Shoulder Posture (L) Rounded (L) Forward Scapula Posture (L) Protracted (R) Protracted Comments Posture Comments Slight fwd head with shoulders internally rotated. Palpation Assessment Location One Palpation Location Rhomboids, mid traps, right scapular muscles. Palpation Findings Tenderness Trigger Point Palpation Details Both rhomboids PT-OP-K Range of Motion Start: 07/09/18 16:21 Freq: Status: Active Protocol: Document 07/09/18 17:35 EA (Rec: 07/10/18 12:15 EA [id number]) Cervical Spine Range of Motion Cervical Spine Active Percentage Testing Position Sitting Flexion 90 Extension 85 Rotation Left 85 Rotation Right 85 Lateral Flexion Left 80 Lateral Flexion Right 80 ROM Limitations Soft Tissue Tightness Pain Shoulder Goniometric Range of Motion Shoulder Right Active Shoulder ROM WFL Yes Elbow/Forearm Range of Motion Elbow/Forearm Right Active Elbow/Forearm ROM WFL Yes Thumb Goniometric Range of Motion Thumb Left Thumb ROM WFL Yes PT-OP-L Special Tests Start: 07/09/18 16:21 Freq: Status: Active Protocol: Document 07/09/18 17:35 EA (Rec: 07/10/18 12:15 EA [id number]) Special Tests Cervical Spine Special Tests Upper Limb Tension Test Test Results + ulnar Foraminal Compression Test Results - Vertebral Artery Test Results - Shoulder Special Tests Leung Santy Impingement Test Results - Elevation Impingement Test Results - Neural Special Tests- Lower Body Other- 1 Test Results Juancarlos and Lala tests + Other Special Tests Special Tests Trigger point jump sign: positive at right medial scapular border PT-OP-M Strength Start: 07/09/18 16:21 Freq: Status: Active Protocol: Document 07/09/18 17:35 EA (Rec: 07/10/18 12:15 EA [id number]) Cervical Spine Strength Cervical Spine Manual Muscle Testing Testing Position Supine Reason Not Measured WFL Shoulder Strength Shoulder Manual Muscle Testing Right Reason Not Measured WFL Wrist Strength Wrist Manual Muscle Testing Right Reason Not Measured WFL Finger/Thumb Strength Finger Manual Muscle Testing Right Thumb Reason Not Measured WFL Hand Optometrist Assistant/Pinch Strength Hand Dominance Hand Dominance Right PT-OP-Q Treatments Start: 07/09/18 16:21 Freq: Status: Active Protocol: Document 08/06/18 12:53 SA (Rec: 08/06/18 13:01 SA [email or web address]) Cardio Equipment Upper Body Ergometer (UBE) Duration (Minutes) 5 Height 5 Other warm up Therapeutic Exercises Supine Exercises Thoracic EXT stretch Side bilateral Equipment Used foam roll Reps/Minutes 3 min Sitting Exercises 3 Sitting Exercise Name scalene stretch Reps/Minutes 30x2 2 Sitting Exercise Name Sitted chest stretch Reps/Minutes 30 sec hold x 3 reps 1 Sitting Exercise Name rhomboids, traps stretch Reps/Minutes 30 sec hold x 3 reps Standing Exercises 1 Standing Exercise Name rows Resistance #2 t band 2 Standing Exercise Name Wall posture with t-bar shoulder flexion Reps/Minutes x 15 reps Other Exercises 2 Other Exercise Name Mid-row Resistance Lv1 Reps/Minutes x 15 reps PT-OP-R Modalities Start: 07/09/18 16:21 Freq: Status: Active Protocol: Document 08/06/18 13:01 SA (Rec: 08/06/18 13:02 SA [email or web address]) Electric Stimulation Electric Stimulation Interferential Current (IFC) Body Location R c-spine, upper scap Duration (Minutes) 15 Contraction Type Normal Patient Position Supine Combined With Heat/Cold Hot Pack PT-OP-T Assessment and Plan Start: 07/09/18 16:21 Freq: Status: Active Protocol: Document 08/06/18 12:53 SA (Rec: 08/06/18 13:01 SA [email or web address]) Physical Therapy Assessment Assessment Summary Assessment Pt tolerated exercise and stretching well, added thoracic ext stretch to HEP, discussed sleeping position. Physical Therapy Plan Next Visit Focus/Plan Next Note Type Treatment Note Next Visit Plan STM in upper/mid thoracic and scalenes to manage pain
--- NOTE | 2018-08-09 15:46 | PT.OTN ---
Current Diagnoses Anesthesia of skin (08/09/18) Physical Therapy Treatment Note PT-OP-A Visit Information Start: 07/09/18 16:21 Freq: Status: Active Protocol: Document 08/09/18 15:39 SA (Rec: 08/09/18 15:46 SA [email or web address]) Out-Patient Physical Therapy Visit Information Visit Information Visit Type Treatment Note Visit Start Time 13:10 Visit Stop Time 13:49 Visit Number 9 Number of BINGO CALLER Visits 2 PT-OP-B Current Condition Start: 07/09/18 16:21 Freq: Status: Active Protocol: Document 07/09/18 17:35 EA (Rec: 07/10/18 07:30 EA [id number]) Current Condition History of Current Condition Onset Date June 29, 2018 Current Complaints Mid back pain w/ tingling radiates down R arm and dorsal 3rd and 4th finger History of Current Condition Patient reports current condition started more than 6 months ago and which exacerbates more than a week ago after [place] her [place]; states advil and helps to alleviate pain and tingling but was not completely eliminate. Patient reports pain and tingling mostly happened upon waking up in the morning or in the middle of the evening and decreases once strated using it during the day. She also mentioned that arm pain and tingling mostly accompanied with mid back pain. She denies recent diagnostic imaging. She denies any related injury in the past. Prior Treatments and Tests Advil for pain Future Testing and Treatments Planned None identified. Treatment Goals Patient/Caregiver Goals Patient wants to get rid of the pain so she could use it for writing and be able sleep without bothering from pain and abnormal sensation to right UE. 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 Functional Limitations- Work/School Unable to work due to right shoulder and hand discomfort. Functional Limitations- Recreation/ Difficulty with gardening. Hobbies Personal Factors Other Personal Factors That May Effect None identified. Therapy/Recovery PT-OP-C Subjective Start: 07/09/18 16:21 Freq: Status: Active Protocol: Document 08/06/18 12:53 SA (Rec: 08/06/18 13:01 SA [email or web address]) OP-PT Subjective Patient Comments Patient Comments Pt states she still has difficulty sleeping and R hand numbness and heaviness. Doing stretches daily. PT-OP-E Functional Tests Start: 07/09/18 16:21 Freq: Status: Active Protocol: Document 07/09/18 17:35 EA (Rec: 07/10/18 12:38 EA [id number]) Functional Tests Other 1 Name of Test Hand space engineer dynamometer: L 32 ; R 32 Score Normal (28) PT-OP-F Manual Assessment Start: 07/09/18 16:21 Freq: Status: Active Protocol: Document 07/09/18 17:35 EA (Rec: 07/10/18 12:38 EA [id number]) Manual Assessments Soft Tissue Assessment Soft Tissue Mobility Assessment Tight right scapular borders, scalenes, traps, rhomboids. Tight shoulder internal rotators. Joint Mobility Assessment Joint Mobility Assessment Normal joint mobility on shoulder, CMC, wrists. PT-OP-J Posture/Palpation/Skin Start: 07/09/18 16:21 Freq: Status: Active Protocol: Document 07/09/18 17:35 EA (Rec: 07/10/18 12:38 EA [id number]) Posture Evaluation Position Standing Evaluation View Lateral Head/C-Spine Posture Extended Forward Head Shoulder Posture (L) Rounded (L) Forward Scapula Posture (L) Protracted (R) Protracted Comments Posture Comments Slight fwd head with shoulders internally rotated. Palpation Assessment Location One Palpation Location Rhomboids, mid traps, right scapular muscles. Palpation Findings Tenderness Trigger Point Palpation Details Both rhomboids PT-OP-K Range of Motion Start: 07/09/18 16:21 Freq: Status: Active Protocol: Document 07/09/18 17:35 EA (Rec: 07/10/18 12:15 EA [id number]) Cervical Spine Range of Motion Cervical Spine Active Percentage Testing Position Sitting Flexion 90 Extension 85 Rotation Left 85 Rotation Right 85 Lateral Flexion Left 80 Lateral Flexion Right 80 ROM Limitations Soft Tissue Tightness Pain Shoulder Goniometric Range of Motion Shoulder Right Active Shoulder ROM WFL Yes Elbow/Forearm Range of Motion Elbow/Forearm Right Active Elbow/Forearm ROM WFL Yes Thumb Goniometric Range of Motion Thumb Left Thumb ROM WFL Yes PT-OP-L Special Tests Start: 07/09/18 16:21 Freq: Status: Active Protocol: Document 07/09/18 17:35 EA (Rec: 07/10/18 12:15 EA [id number]) Special Tests Cervical Spine Special Tests Upper Limb Tension Test Test Results + ulnar Foraminal Compression Test Results - Vertebral Artery Test Results - Shoulder Special Tests Leung Santy Impingement Test Results - Elevation Impingement Test Results - Neural Special Tests- Lower Body Other- 1 Test Results Juancarlos and Lala tests + Other Special Tests Special Tests Trigger point jump sign: positive at right medial scapular border PT-OP-M Strength Start: 07/09/18 16:21 Freq: Status: Active Protocol: Document 07/09/18 17:35 EA (Rec: 07/10/18 12:15 EA [id number]) Cervical Spine Strength Cervical Spine Manual Muscle Testing Testing Position Supine Reason Not Measured WFL Shoulder Strength Shoulder Manual Muscle Testing Right Reason Not Measured WFL Wrist Strength Wrist Manual Muscle Testing Right Reason Not Measured WFL Finger/Thumb Strength Finger Manual Muscle Testing Right Thumb Reason Not Measured WFL Hand Youth Counselor/Pinch Strength Hand Dominance Hand Dominance Right PT-OP-Q Treatments Start: 07/09/18 16:21 Freq: Status: Active Protocol: Document 08/09/18 15:39 SA (Rec: 08/09/18 15:46 SA [email or web address]) Cardio Equipment Upper Body Ergometer (UBE) Duration (Minutes) 5 Height 5 Other warm up Therapeutic Exercises Supine Exercises Thoracic EXT stretch Side bilateral Equipment Used foam roll Reps/Minutes 3 min Sitting Exercises 3 Sitting Exercise Name scalene stretch Reps/Minutes 30x2 2 Sitting Exercise Name Sitted chest stretch Reps/Minutes 30 sec hold x 3 reps 1 Sitting Exercise Name rhomboids, traps stretch Reps/Minutes 30 sec hold x 3 reps Standing Exercises 1 Standing Exercise Name rows Resistance #2 t band Reps/Minutes 2 x 15 2 Standing Exercise Name Wall posture with t-bar shoulder flexion Reps/Minutes x 15 reps Other Exercises 2 Other Exercise Name Mid-row Resistance Lv1 Reps/Minutes x 15 reps 1 Other Exercise Name Shoulder extension Resistance lv 2 Reps/Minutes 2 x 15 Manual Therapy Treatment Soft Tissue Mobilization 2 Body Location sub-occipital release Mobilization Type Sustained Pressure Intensity/Depth Moderate Body Position Supine 1 Body Location R scalenes, UT, Rhomboids, scapular borders Mobilization Type Rolling Strumming Sustained Pressure Trigger Point Release Intensity/Depth Moderate Body Position Supine Manual Traction Cervical Details cervical traction Body Position Supine Reps/Duration 5 min Comments well tolerated PT-OP-R Modalities Start: 07/09/18 16:21 Freq: Status: Active Protocol: Document 08/06/18 13:01 SA (Rec: 08/06/18 13:02 SA [email or web address]) Electric Stimulation Electric Stimulation Interferential Current (IFC) Body Location R c-spine, upper scap Duration (Minutes) 15 Contraction Type Normal Patient Position Supine Combined With Heat/Cold Hot Pack PT-OP-T Assessment and Plan Start: 07/09/18 16:21 Freq: Status: Active Protocol: Document 08/09/18 15:39 SA (Rec: 08/09/18 15:46 SA [email or web address]) Physical Therapy Assessment Assessment Summary Assessment Pt with continued UT/cervical mm guarding. Doing stretches at home with slight decrease in B finger numbness. Physical Therapy Plan Next Visit Focus/Plan Next Note Type Treatment Note Next Visit Plan Progress stretching and exercise as tolerated, cont with postural training and manual therapy.
--- NOTE | 2018-08-12 12:08 | PT.OTN ---
Current Diagnoses Anesthesia of skin (08/12/18) Physical Therapy Treatment Note PT-OP-A Visit Information Start: 07/09/18 16:21 Freq: Status: Active Protocol: Document 08/12/18 11:10 EA (Rec: 08/12/18 11:16 EA [id number]) Out-Patient Physical Therapy Visit Information Visit Information Visit Type Treatment Note Visit Start Time 10:30 Visit Stop Time 11:20 Visit Number 10 Number of PACKING LINE OPERATOR Visits 3 PT-OP-B Current Condition Start: 07/09/18 16:21 Freq: Status: Active Protocol: Document 07/09/18 17:35 EA (Rec: 07/10/18 07:30 EA [id number]) Current Condition History of Current Condition Onset Date June 29, 2018 Current Complaints Mid back pain w/ tingling radiates down R arm and dorsal 3rd and 4th finger History of Current Condition Patient reports current condition started more than 6 months ago and which exacerbates more than a week ago after [place]unning [place] her backyard; states advil and helps to alleviate pain and tingling but was not completely eliminate. Patient reports pain and tingling mostly happened upon waking up in the morning or in the middle of the evening and decreases once strated using it during the day. She also mentioned that arm pain and tingling mostly accompanied with mid back pain. She denies recent diagnostic imaging. She denies any related injury in the past. Prior Treatments and Tests Advil for pain Future Testing and Treatments Planned None identified. Treatment Goals Patient/Caregiver Goals Patient wants to get rid of the pain so she could use it for writing and be able sleep without bothering from pain and abnormal sensation to right UE. 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 Functional Limitations- Work/School Unable to work due to right shoulder and hand discomfort. Functional Limitations- Recreation/ Difficulty with gardening. Hobbies Personal Factors Other Personal Factors That May Effect None identified. Therapy/Recovery PT-OP-C Subjective Start: 07/09/18 16:21 Freq: Status: Active Protocol: Document 08/12/18 11:10 EA (Rec: 08/12/18 11:16 EA [id number]) OP-PT Subjective Patient Comments Patient Comments Pt reports heat and TENS unit helps decreased pain; she has been using foam roller as well . 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 Tight shoulder internal rotators. Joint Mobility Assessment Joint Mobility Assessment Normal joint mobility on shoulder, CMC, wrists. PT-OP-J Posture/Palpation/Skin Start: 07/09/18 16:21 Freq: Status: Active Protocol: Document 07/09/18 17:35 EA (Rec: 07/10/18 12:38 EA [id number]) Posture Evaluation Position Standing Evaluation View Lateral Head/C-Spine Posture Extended Forward Head Shoulder Posture (L) Rounded (L) Forward Scapula Posture (L) Protracted (R) Protracted Comments Posture Comments Slight fwd head with shoulders internally rotated. Palpation Assessment Location One Palpation Location Rhomboids, mid traps, right scapular muscles. Palpation Findings Tenderness Trigger Point Palpation Details Both rhomboids PT-OP-K Range of Motion Start: 07/09/18 16:21 Freq: Status: Active Protocol: Document 07/09/18 17:35 EA (Rec: 07/10/18 12:15 EA [id number]) Cervical Spine Range of Motion Cervical Spine Active Percentage Testing Position Sitting Flexion 90 Extension 85 Rotation Left 85 Rotation Right 85 Lateral Flexion Left 80 Lateral Flexion Right 80 ROM Limitations Soft Tissue Tightness Pain Shoulder Goniometric Range of Motion Shoulder Right Active Shoulder ROM WFL Yes Elbow/Forearm Range of Motion Elbow/Forearm Right Active Elbow/Forearm ROM WFL Yes Thumb Goniometric Range of Motion Thumb Left Thumb ROM WFL Yes PT-OP-L Special Tests Start: 07/09/18 16:21 Freq: Status: Active Protocol: Document 07/09/18 17:35 EA (Rec: 07/10/18 12:15 EA [id number]) Special Tests Cervical Spine Special Tests Upper Limb Tension Test Test Results + ulnar Foraminal Compression Test Results - Vertebral Artery Test Results - Shoulder Special Tests Leung Santy Impingement Test Results - Elevation Impingement Test Results - Neural Special Tests- Lower Body Other- 1 Test Results [place] and Lala tests + Other Special Tests Special Tests Trigger point jump sign: positive at right medial scapular border PT-OP-M Strength Start: 07/09/18 16:21 Freq: Status: Active Protocol: Document 07/09/18 17:35 EA (Rec: 07/10/18 12:15 EA [id number]) Cervical Spine Strength Cervical Spine Manual Muscle Testing Testing Position Supine Reason Not Measured WFL Shoulder Strength Shoulder Manual Muscle Testing Right Reason Not Measured WFL Wrist Strength Wrist Manual Muscle Testing Right Reason Not Measured WFL Finger/Thumb Strength Finger Manual Muscle Testing Right Thumb Reason Not Measured WFL Hand Senior Electrical Design Engineer/Pinch Strength Hand Dominance Hand Dominance Right PT-OP-Q Treatments Start: 07/09/18 16:21 Freq: Status: Active Protocol: Document 08/12/18 11:10 EA (Rec: 08/12/18 11:16 EA [id number]) Cardio Equipment Upper Body Ergometer (UBE) Duration (Minutes) 5 Height 5 Other warm up Therapeutic Exercises Prone Exercises 2 Prone Exercise Name Shoulder flexion/Y Resistance 1# Reps/Minutes 15 reps x 2 1 Prone Exercise Name Horiz ABD Resistance 1# Reps/Minutes x 15 reps Standing Exercises 1 Standing Exercise Name rows Resistance #2 t band Reps/Minutes 2 x 15 2 Standing Exercise Name Wall posture with t-bar shoulder flexion Reps/Minutes x 15 reps Other Exercises 2 Other Exercise Name Mid-row Resistance Lv1 Reps/Minutes x 15 reps 1 Other Exercise Name Shoulder extension Resistance lv 2 Reps/Minutes 2 x 15 Manual Therapy Treatment Soft Tissue Mobilization 1 Body Location R scalenes, UT, Rhomboids, scapular borders Mobilization Type Rolling Strumming Sustained Pressure Trigger Point Release Intensity/Depth Moderate Body Position Supine PT-OP-R Modalities Start: 07/09/18 16:21 Freq: Status: Active Protocol: Document 08/12/18 11:10 EA (Rec: 08/12/18 11:16 EA [id number]) Electric Stimulation Electric Stimulation Interferential Current (IFC) Body Location Right medial scap border Duration (Minutes) 25 Contraction Type Normal Patient Position Prone Combined With Heat/Cold Hot Pack PT-OP-T Assessment and Plan Start: 07/09/18 16:21 Freq: Status: Active Protocol: Document 08/12/18 11:10 EA (Rec: 08/12/18 11:16 EA [id number]) Physical Therapy Assessment Assessment Summary Assessment Tolerated treatment well with decreased tender point at scapular border after manual PT. Physical Therapy Plan Next Visit Focus/Plan Next Note Type Treatment Note Next Visit Plan Progress stretching and exercise as tolerated, cont with postural training and manual therapy.
--- NOTE | 2018-08-15 14:27 | PT.OTN ---
Current Diagnoses Anesthesia of skin (08/15/18) Physical Therapy Treatment Note PT-OP-A Visit Information Start: 07/09/18 16:21 Freq: Status: Active Protocol: Document 08/15/18 13:33 EA (Rec: 08/15/18 13:38 EA [id number]) Out-Patient Physical Therapy Visit Information Visit Information Visit Type Treatment Note Visit Start Time 13:05 Visit Stop Time 13:55 Visit Number 11 Number of MACHINE SETTER AND REPAIRER Visits 3 PT-OP-B Current Condition Start: 07/09/18 16:21 Freq: Status: Active Protocol: Document 07/09/18 17:35 EA (Rec: 07/10/18 07:30 EA [id number]) Current Condition History of Current Condition Onset Date June 29, 2018 Current Complaints Mid back pain w/ tingling radiates down R arm and dorsal 3rd and 4th finger History of Current Condition Patient reports current condition started more than 6 months ago and which exacerbates more than a week ago after prunning on her backyard; states advil and helps to alleviate pain and tingling but was not completely eliminate. Patient reports pain and tingling mostly happened upon waking up in the morning or in the middle of the evening and decreases once strated using it during the day. She also mentioned that arm pain and tingling mostly accompanied with mid back pain. She denies recent diagnostic imaging. She denies any related injury in the past. Prior Treatments and Tests Advil for pain Future Testing and Treatments Planned None identified. Treatment Goals Patient/Caregiver Goals Patient wants to get rid of the pain so she could use it for writing and be able sleep without bothering from pain and abnormal sensation to right UE. 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 Functional Limitations- Work/School Unable to work due to right shoulder and hand discomfort. Functional Limitations- Recreation/ Difficulty with gardening. Hobbies Personal Factors Other Personal Factors That May Effect None identified. Therapy/Recovery PT-OP-C Subjective Start: 07/09/18 16:21 Freq: Status: Active Protocol: Document 08/15/18 13:33 EA (Rec: 08/15/18 13:38 EA [id number]) OP-PT Subjective Patient Comments Patient Comments Pt reports improved psotural awareness and pain is much better now. 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 Tight shoulder internal rotators. Joint Mobility Assessment Joint Mobility Assessment Normal joint mobility on shoulder, CMC, wrists. PT-OP-J Posture/Palpation/Skin Start: 07/09/18 16:21 Freq: Status: Active Protocol: Document 07/09/18 17:35 EA (Rec: 07/10/18 12:38 EA [id number]) Posture Evaluation Position Standing Evaluation View Lateral Head/C-Spine Posture Extended Forward Head Shoulder Posture (L) Rounded (L) Forward Scapula Posture (L) Protracted (R) Protracted Comments Posture Comments Slight fwd head with shoulders internally rotated. Palpation Assessment Location One Palpation Location Rhomboids, mid traps, right scapular muscles. Palpation Findings Tenderness Trigger Point Palpation Details Both rhomboids PT-OP-K Range of Motion Start: 07/09/18 16:21 Freq: Status: Active Protocol: Document 07/09/18 17:35 EA (Rec: 07/10/18 12:15 EA [id number]) Cervical Spine Range of Motion Cervical Spine Active Percentage Testing Position Sitting Flexion 90 Extension 85 Rotation Left 85 Rotation Right 85 Lateral Flexion Left 80 Lateral Flexion Right 80 ROM Limitations Soft Tissue Tightness Pain Shoulder Goniometric Range of Motion Shoulder Right Active Shoulder ROM WFL Yes Elbow/Forearm Range of Motion Elbow/Forearm Right Active Elbow/Forearm ROM WFL Yes Thumb Goniometric Range of Motion Thumb Left Thumb ROM WFL Yes PT-OP-L Special Tests Start: 07/09/18 16:21 Freq: Status: Active Protocol: Document 07/09/18 17:35 EA (Rec: 07/10/18 12:15 EA [id number]) Special Tests Cervical Spine Special Tests Upper Limb Tension Test Test Results + ulnar Foraminal Compression Test Results - Vertebral Artery Test Results - Shoulder Special Tests Leung Santy Impingement Test Results - Elevation Impingement Test Results - Neural Special Tests- Lower Body Other- 1 Test Results [place] and Lala tests + Other Special Tests Special Tests Trigger point jump sign: positive at right medial scapular border PT-OP-M Strength Start: 07/09/18 16:21 Freq: Status: Active Protocol: Document 07/09/18 17:35 EA (Rec: 07/10/18 12:15 EA [id number]) Cervical Spine Strength Cervical Spine Manual Muscle Testing Testing Position Supine Reason Not Measured WFL Shoulder Strength Shoulder Manual Muscle Testing Right Reason Not Measured WFL Wrist Strength Wrist Manual Muscle Testing Right Reason Not Measured WFL Finger/Thumb Strength Finger Manual Muscle Testing Right Thumb Reason Not Measured WFL Hand Surveillance Sensor Operator/Pinch Strength Hand Dominance Hand Dominance Right PT-OP-Q Treatments Start: 07/09/18 16:21 Freq: Status: Active Protocol: Document 08/15/18 13:33 EA (Rec: 08/15/18 13:38 EA [id number]) Gym Equipment Cable Column (Body Solid) Rows Details posture to form Resistance 20# Reps/Time x 12 reps Therapeutic Exercises Prone Exercises 2 Prone Exercise Name Shoulder flexion/Y Resistance 1# Reps/Minutes 15 reps x 2 1 Prone Exercise Name Horiz ABD Resistance 1# Reps/Minutes x 15 reps Sitting Exercises 3 Sitting Exercise Name scalene stretch Reps/Minutes 30x2 2 Sitting Exercise Name Sitted chest stretch Reps/Minutes 30 sec hold x 3 reps 1 Sitting Exercise Name rhomboids, traps stretch Reps/Minutes 30 sec hold x 3 reps Standing Exercises 2 Standing Exercise Name Wall posture with t-bar shoulder flexion Resistance small to big T-ball Reps/Minutes x 15 reps Other Exercises 2 Other Exercise Name Mid-row Resistance Lv1 Reps/Minutes x 15 reps Manual Therapy Treatment Soft Tissue Mobilization 1 Body Location R scalenes, UT, Rhomboids, scapular borders Mobilization Type Rolling Strumming Sustained Pressure Trigger Point Release Intensity/Depth Moderate Body Position Supine PT-OP-R Modalities Start: 05/21/19 16:21 Freq: Status: Active Protocol: Document 08/15/18 13:33 EA (Rec: 08/15/18 13:38 EA [id number]) Electric Stimulation Electric Stimulation Interferential Current (IFC) Body Location Right medial scap border Duration (Minutes) 25 Contraction Type Normal Patient Position Prone Combined With Heat/Cold Hot Pack PT-OP-T Assessment and Plan Start: 07/09/18 16:21 Freq: Status: Active Protocol: Document 08/15/18 13:33 EA (Rec: 08/15/18 13:38 EA [id number]) Physical Therapy Assessment Assessment Summary Assessment Pt has improved response manual PT at this time; overall she is improved. Physical Therapy Plan Next Visit Focus/Plan Next Note Type Treatment Note Next Visit Plan Progress stretching and exercise as tolerated, cont with postural training and manual therapy.
--- NOTE | 2018-08-19 12:06 | PT.OTN ---
Current Diagnoses Anesthesia of skin (08/19/18) Physical Therapy Treatment Note PT-OP-A Visit Information Start: 07/09/18 16:21 Freq: Status: Active Protocol: Document 08/19/18 11:11 EA (Rec: 08/19/18 11:17 EA [id number]) Out-Patient Physical Therapy Visit Information Visit Information Visit Type Treatment Note Visit Start Time 09:45 Visit Stop Time 10:38 Visit Number 12 Number of CHEESEMAKER Visits 3 PT-OP-B Current Condition Start: 07/09/18 16:21 Freq: Status: Active Protocol: Document 07/09/18 17:35 EA (Rec: 07/10/18 07:30 EA [id number]) Current Condition History of Current Condition Onset Date June 29, 2018 Current Complaints Mid back pain w/ tingling radiates down R arm and dorsal 3rd and 4th finger History of Current Condition Patient reports current condition started more than 6 months ago and which exacerbates more than a week ago after [place]unning on her backyard; states advil and helps to alleviate pain and tingling but was not completely eliminate. Patient reports pain and tingling mostly happened upon waking up in the morning or in the middle of the evening and decreases once strated using it during the day. She also mentioned that arm pain and tingling mostly accompanied with mid back pain. She denies recent diagnostic imaging. She denies any related injury in the past. Prior Treatments and Tests Advil for pain Future Testing and Treatments Planned None identified. Treatment Goals Patient/Caregiver Goals Patient wants to get rid of the pain so she could use it for writing and be able sleep without bothering from pain and abnormal sensation to right UE. 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 Functional Limitations- Work/School Unable to work due to right shoulder and hand discomfort. Functional Limitations- Recreation/ Difficulty with gardening. Hobbies Personal Factors Other Personal Factors That May Effect None identified. Therapy/Recovery PT-OP-C Subjective Start: 07/09/18 16:21 Freq: Status: Active Protocol: Document 08/19/18 11:11 EA (Rec: 08/19/18 11:17 EA [id number]) OP-PT Subjective Patient Comments Patient Comments Pt reports she feels that her shoulder is improving; states she went to her doctor and planning to get a massage therapist. 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 Tight shoulder internal rotators. Joint Mobility Assessment Joint Mobility Assessment Normal joint mobility on shoulder, CMC, wrists. PT-OP-J Posture/Palpation/Skin Start: 07/09/18 16:21 Freq: Status: Active Protocol: Document 07/09/18 17:35 EA (Rec: 07/10/18 12:38 EA [id number]) Posture Evaluation Position Standing Evaluation View Lateral Head/C-Spine Posture Extended Forward Head Shoulder Posture (L) Rounded (L) Forward Scapula Posture (L) Protracted (R) Protracted Comments Posture Comments Slight fwd head with shoulders internally rotated. Palpation Assessment Location One Palpation Location Rhomboids, mid traps, right scapular muscles. Palpation Findings Tenderness Trigger Point Palpation Details Both rhomboids PT-OP-K Range of Motion Start: 07/09/18 16:21 Freq: Status: Active Protocol: Document 07/09/18 17:35 EA (Rec: 07/10/18 12:15 EA [id number]) Cervical Spine Range of Motion Cervical Spine Active Percentage Testing Position Sitting Flexion 90 Extension 85 Rotation Left 85 Rotation Right 85 Lateral Flexion Left 80 Lateral Flexion Right 80 ROM Limitations Soft Tissue Tightness Pain Shoulder Goniometric Range of Motion Shoulder Right Active Shoulder ROM WFL Yes Elbow/Forearm Range of Motion Elbow/Forearm Right Active Elbow/Forearm ROM WFL Yes Thumb Goniometric Range of Motion Thumb Left Thumb ROM WFL Yes PT-OP-L Special Tests Start: 07/09/18 16:21 Freq: Status: Active Protocol: Document 07/09/18 17:35 EA (Rec: 07/10/18 12:15 EA [id number]) Special Tests Cervical Spine Special Tests Upper Limb Tension Test Test Results + ulnar Foraminal Compression Test Results - Vertebral Artery Test Results - Shoulder Special Tests Leung Santy Impingement Test Results - Elevation Impingement Test Results - Neural Special Tests- Lower Body Other- 1 Test Results [place] and Lala tests + Other Special Tests Special Tests Trigger point jump sign: positive at right medial scapular border PT-OP-M Strength Start: 07/09/18 16:21 Freq: Status: Active Protocol: Document 07/09/18 17:35 EA (Rec: 07/10/18 12:15 EA [id number]) Cervical Spine Strength Cervical Spine Manual Muscle Testing Testing Position Supine Reason Not Measured WFL Shoulder Strength Shoulder Manual Muscle Testing Right Reason Not Measured WFL Wrist Strength Wrist Manual Muscle Testing Right Reason Not Measured WFL Finger/Thumb Strength Finger Manual Muscle Testing Right Thumb Reason Not Measured WFL Hand Hoof Trimmer/Pinch Strength Hand Dominance Hand Dominance Right PT-OP-Q Treatments Start: 07/09/18 16:21 Freq: Status: Active Protocol: Document 08/19/18 11:11 EA (Rec: 08/19/18 11:17 EA [id number]) Cardio Equipment Upper Body Ergometer (UBE) Duration (Minutes) 5 Height 5 Other warm up Therapeutic Exercises Prone Exercises 2 Prone Exercise Name Shoulder flexion/Y Resistance 1# Reps/Minutes 15 reps x 2 1 Prone Exercise Name Horiz ABD Resistance 1# Reps/Minutes x 15 reps Sitting Exercises 3 Sitting Exercise Name scalene stretch Reps/Minutes 30x2 2 Sitting Exercise Name Sitted chest stretch Reps/Minutes 30 sec hold x 3 reps 1 Sitting Exercise Name rhomboids, traps stretch Reps/Minutes 30 sec hold x 3 reps Standing Exercises 1 Standing Exercise Name rows Resistance #2 t band Reps/Minutes 2 x 15 2 Standing Exercise Name Wall posture with t-bar shoulder flexion Resistance small to big T-ball Reps/Minutes x 15 x2reps Other Exercises 2 Other Exercise Name Mid-row Resistance Lv1 Reps/Minutes x 15 reps 1 Other Exercise Name Shoulder extension Resistance 4 lbs T-bar Reps/Minutes 2 x 15 Manual Therapy Treatment Soft Tissue Mobilization 2 Body Location sub-occipital release Mobilization Type Sustained Pressure Intensity/Depth Moderate Body Position Supine 1 Body Location R scalenes, UT, Rhomboids, scapular borders Mobilization Type Rolling Strumming Sustained Pressure Trigger Point Release Intensity/Depth Moderate Body Position Supine PT-OP-R Modalities Start: 07/09/18 16:21 Freq: Status: Active Protocol: Document 08/19/18 11:11 EA (Rec: 08/19/18 11:17 EA [id number]) Electric Stimulation Electric Stimulation Interferential Current (IFC) Body Location Right medial scap border Duration (Minutes) 25 Contraction Type Normal Patient Position Prone Combined With Heat/Cold Hot Pack PT-OP-T Assessment and Plan Start: 07/09/18 16:21 Freq: Status: Active Protocol: Document 08/19/18 11:11 EA (Rec: 08/19/18 11:17 EA [id number]) Physical Therapy Assessment Assessment Summary Assessment Tolerated treatment well. Physical Therapy Plan Next Visit Focus/Plan Next Note Type Treatment Note Next Visit Plan Progress stretching and exercise as tolerated, cont with postural training and manual therapy.
--- NOTE | 2018-08-21 12:09 | PT.OTN ---
Current Diagnoses Anesthesia of skin (08/21/18) Physical Therapy Treatment Note PT-OP-A Visit Information Start: 07/09/18 16:21 Freq: Status: Active Protocol: Document 08/21/18 11:11 EA (Rec: 08/21/18 11:17 EA [id number]) Out-Patient Physical Therapy Visit Information Visit Information Visit Start Time 10:40 Visit Stop Time 11:25 Visit Number 13 Number of STAFF DEVELOPMENT COORDINATOR RN Visits 3 PT-OP-B Current Condition Start: 07/09/18 16:21 Freq: Status: Active Protocol: Document 07/09/18 17:35 EA (Rec: 07/10/18 07:30 EA [id number]) Current Condition History of Current Condition Onset Date June 29, 2018 Current Complaints Mid back pain w/ tingling radiates down R arm and dorsal 3rd and 4th finger History of Current Condition Patient reports current condition started more than 6 months ago and which exacerbates more than a week ago after prunning on her backyard; states advil and helps to alleviate pain and tingling but was not completely eliminate. Patient reports pain and tingling mostly happened upon waking up in the morning or in the middle of the evening and decreases once strated using it during the day. She also mentioned that arm pain and tingling mostly accompanied with mid back pain. She denies recent diagnostic imaging. She denies any related injury in the past. Prior Treatments and Tests Advil for pain Future Testing and Treatments Planned None identified. Treatment Goals Patient/Caregiver Goals Patient wants to get rid of the pain so she could use it for writing and be able sleep without bothering from pain and abnormal sensation to right UE. 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 Functional Limitations- Work/School Unable to work due to right shoulder and hand discomfort. Functional Limitations- Recreation/ Difficulty with gardening. Hobbies Personal Factors Other Personal Factors That May Effect None identified. 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 Tight shoulder internal rotators. Joint Mobility Assessment Joint Mobility Assessment Normal joint mobility on shoulder, CMC, wrists. PT-OP-J Posture/Palpation/Skin Start: 07/09/18 16:21 Freq: Status: Active Protocol: Document 07/09/18 17:35 EA (Rec: 07/10/18 12:38 EA [id number]) Posture Evaluation Position Standing Evaluation View Lateral Head/C-Spine Posture Extended Forward Head Shoulder Posture (L) Rounded (L) Forward Scapula Posture (L) Protracted (R) Protracted Comments Posture Comments Slight fwd head with shoulders internally rotated. Palpation Assessment Location One Palpation Location Rhomboids, mid traps, right scapular muscles. Palpation Findings Tenderness Trigger Point Palpation Details Both rhomboids PT-OP-K Range of Motion Start: 07/09/18 16:21 Freq: Status: Active Protocol: Document 07/09/18 17:35 EA (Rec: 07/10/18 12:15 EA [id number]) Cervical Spine Range of Motion Cervical Spine Active Percentage Testing Position Sitting Flexion 90 Extension 85 Rotation Left 85 Rotation Right 85 Lateral Flexion Left 80 Lateral Flexion Right 80 ROM Limitations Soft Tissue Tightness Pain Shoulder Goniometric Range of Motion Shoulder Right Active Shoulder ROM WFL Yes Elbow/Forearm Range of Motion Elbow/Forearm Right Active Elbow/Forearm ROM WFL Yes Thumb Goniometric Range of Motion Thumb Left Thumb ROM WFL Yes PT-OP-L Special Tests Start: 07/09/18 16:21 Freq: Status: Active Protocol: Document 07/09/18 17:35 EA (Rec: 07/10/18 12:15 EA [id number]) Special Tests Cervical Spine Special Tests Upper Limb Tension Test Test Results + ulnar Foraminal Compression Test Results - Vertebral Artery Test Results - Shoulder Special Tests Leung Santy Impingement Test Results - Elevation Impingement Test Results - Neural Special Tests- Lower Body Other- 1 Test Results Flushing and Lala tests + Other Special Tests Special Tests Trigger point jump sign: positive at right medial scapular border PT-OP-M Strength Start: 07/09/18 16:21 Freq: Status: Active Protocol: Document 07/09/18 17:35 EA (Rec: 07/10/18 12:15 EA [id number]) Cervical Spine Strength Cervical Spine Manual Muscle Testing Testing Position Supine Reason Not Measured WFL Shoulder Strength Shoulder Manual Muscle Testing Right Reason Not Measured WFL Wrist Strength Wrist Manual Muscle Testing Right Reason Not Measured WFL Finger/Thumb Strength Finger Manual Muscle Testing Right Thumb Reason Not Measured WFL Hand Quality Control Engineer/Pinch Strength Hand Dominance Hand Dominance Right PT-OP-Q Treatments Start: 07/09/18 16:21 Freq: Status: Active Protocol: Document 08/21/18 11:11 EA (Rec: 08/21/18 11:17 EA [id number]) Cardio Equipment Upper Body Ergometer (UBE) Duration (Minutes) 5 Height 5 Other warm up Gym Equipment Cable Column (Body Solid) Rows Details posture to form Resistance 20# Reps/Time x 12 repsx2 Therapeutic Exercises Prone Exercises 2 Prone Exercise Name Shoulder flexion/Y Resistance 2# Reps/Minutes 15 reps x 2 1 Prone Exercise Name Horiz ABD Resistance 2# Reps/Minutes x 15 reps Sitting Exercises 4 Sitting Exercise Name shoulder press Resistance 2# DB Reps/Minutes x 12 reps x 2 3 Sitting Exercise Name scalene stretch Reps/Minutes 30x2 2 Sitting Exercise Name Sitted chest stretch Reps/Minutes 30 sec hold x 3 reps 1 Sitting Exercise Name rhomboids, traps stretch Reps/Minutes 30 sec hold x 3 reps Other Exercises 1 Other Exercise Name Shoulder extension Resistance 4 lbs T-bar Reps/Minutes 2 x 15 Manual Therapy Treatment Soft Tissue Mobilization 2 Body Location sub-occipital release Mobilization Type Sustained Pressure Intensity/Depth Deep Body Position Supine 1 Body Location R scalenes, UT, Rhomboids, scapular borders Mobilization Type Rolling Strumming Sustained Pressure Trigger Point Release Intensity/Depth Deep Body Position Supine PT-OP-R Modalities Start: 07/09/18 16:21 Freq: Status: Active Protocol: Document 08/21/18 11:11 EA (Rec: 08/21/18 11:17 EA [id number]) Electric Stimulation Electric Stimulation Interferential Current (IFC) Body Location Right medial scap border Duration (Minutes) 27 Contraction Type Normal Patient Position Prone Combined With Heat/Cold Hot Pack PT-OP-T Assessment and Plan Start: 07/09/18 16:21 Freq: Status: Active Protocol: Document 08/21/18 11:11 EA (Rec: 08/21/18 11:17 EA [id number]) Physical Therapy Assessment Assessment Summary Assessment Pt tolerated deep manual STM today without discomfort after . Patient cont. to progress and showing maintain posture in all shoulder exercises. Physical Therapy Plan Next Visit Focus/Plan Next Note Type Treatment Note Next Visit Plan advance as tolerated.
--- NOTE | 2018-08-26 16:55 | PT.OTN ---
Current Diagnoses Anesthesia of skin (08/26/18) Physical Therapy Treatment Note PT-OP-A Visit Information Start: 07/09/18 16:21 Freq: Status: Active Protocol: Document 08/26/18 10:58 EA (Rec: 08/26/18 11:07 EA [id number]) Out-Patient Physical Therapy Visit Information Visit Information Visit Type Treatment Note Visit Start Time 10:30 Visit Stop Time 11:10 Visit Number 14 Number of CAMPAIGN MANAGEMENT SPECIALIST Visits 3 PT-OP-B Current Condition Start: 07/09/18 16:21 Freq: Status: Active Protocol: Document 07/09/18 17:35 EA (Rec: 07/10/18 07:30 EA [id number]) Current Condition History of Current Condition Onset Date June 29, 2018 Current Complaints Mid back pain w/ tingling radiates down R arm and dorsal 3rd and 4th finger History of Current Condition Patient reports current condition started more than 6 months ago and which exacerbates more than a week ago after prunning on her backyard; states advil and helps to alleviate pain and tingling but was not completely eliminate. Patient reports pain and tingling mostly happened upon waking up in the morning or in the middle of the evening and decreases once strated using it during the day. She also mentioned that arm pain and tingling mostly accompanied with mid back pain. She denies recent diagnostic imaging. She denies any related injury in the past. Prior Treatments and Tests Advil for pain Future Testing and Treatments Planned None identified. Treatment Goals Patient/Caregiver Goals Patient wants to get rid of the pain so she could use it for writing and be able sleep without bothering from pain and abnormal sensation to right UE. 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 Functional Limitations- Work/School Unable to work due to right shoulder and hand discomfort. Functional Limitations- Recreation/ Difficulty with gardening. Hobbies Personal Factors Other Personal Factors That May Effect None identified. Therapy/Recovery PT-OP-C Subjective Start: 07/09/18 16:21 Freq: Status: Active Protocol: Document 08/26/18 10:58 EA (Rec: 08/26/18 11:07 EA [id number]) OP-PT Subjective Patient Comments Patient Comments Pt reports that she feels improved shoulder symptoms right after the session and symptoms worsesn after doing home activities. She reports painting for an hour last weekened agggravates her right scapular border. I feel there is more deep propblem and I want an MRI. PT-OP-E Functional Tests Start: 07/09/18 16:21 Freq: Status: Active Protocol: Document 07/09/18 17:35 EA (Rec: 07/10/18 12:38 EA [id number]) Functional Tests Other 1 Name of Test Hand electrical linesworker dynamometer: L 32 ; R 32 Score Normal (28) PT-OP-F Manual Assessment Start: 07/09/18 16:21 Freq: Status: Active Protocol: Document 07/09/18 17:35 EA (Rec: 07/10/18 12:38 EA [id number]) Manual Assessments Soft Tissue Assessment Soft Tissue Mobility Assessment Tight right scapular borders, scalenes, traps, rhomboids. Tight shoulder internal rotators. Joint Mobility Assessment Joint Mobility Assessment Normal joint mobility on shoulder, CMC, wrists. PT-OP-J Posture/Palpation/Skin Start: 07/09/18 16:21 Freq: Status: Active Protocol: Document 07/09/18 17:35 EA (Rec: 07/10/18 12:38 EA [id number]) Posture Evaluation Position Standing Evaluation View Lateral Head/C-Spine Posture Extended Forward Head Shoulder Posture (L) Rounded (L) Forward Scapula Posture (L) Protracted (R) Protracted Comments Posture Comments Slight fwd head with shoulders internally rotated. Palpation Assessment Location One Palpation Location Rhomboids, mid traps, right scapular muscles. Palpation Findings Tenderness Trigger Point Palpation Details Both rhomboids PT-OP-K Range of Motion Start: 07/09/18 16:21 Freq: Status: Active Protocol: Document 07/09/18 17:35 EA (Rec: 07/10/18 12:15 EA [id number]) Cervical Spine Range of Motion Cervical Spine Active Percentage Testing Position Sitting Flexion 90 Extension 85 Rotation Left 85 Rotation Right 85 Lateral Flexion Left 80 Lateral Flexion Right 80 ROM Limitations Soft Tissue Tightness Pain Shoulder Goniometric Range of Motion Shoulder Right Active Shoulder ROM WFL Yes Elbow/Forearm Range of Motion Elbow/Forearm Right Active Elbow/Forearm ROM WFL Yes Thumb Goniometric Range of Motion Thumb Left Thumb ROM WFL Yes PT-OP-L Special Tests Start: 07/09/18 16:21 Freq: Status: Active Protocol: Document 07/09/18 17:35 EA (Rec: 07/10/18 12:15 EA [id number]) Special Tests Cervical Spine Special Tests Upper Limb Tension Test Test Results + ulnar Foraminal Compression Test Results - Vertebral Artery Test Results - Shoulder Special Tests Leung Santy Impingement Test Results - Elevation Impingement Test Results - Neural Special Tests- Lower Body Other- 1 Test Results Juancarlos and Lala tests + Other Special Tests Special Tests Trigger point jump sign: positive at right medial scapular border PT-OP-M Strength Start: 07/09/18 16:21 Freq: Status: Active Protocol: Document 07/09/18 17:35 EA (Rec: 07/10/18 12:15 EA [id number]) Cervical Spine Strength Cervical Spine Manual Muscle Testing Testing Position Supine Reason Not Measured WFL Shoulder Strength Shoulder Manual Muscle Testing Right Reason Not Measured WFL Wrist Strength Wrist Manual Muscle Testing Right Reason Not Measured WFL Finger/Thumb Strength Finger Manual Muscle Testing Right Thumb Reason Not Measured WFL Hand Welding Machine Setter/Pinch Strength Hand Dominance Hand Dominance Right PT-OP-Q Treatments Start: 07/09/18 16:21 Freq: Status: Active Protocol: Document 08/26/18 10:58 EA (Rec: 08/26/18 11:07 EA [id number]) Manual Therapy Treatment Soft Tissue Mobilization 2 Body Location sub-occipital release Mobilization Type Sustained Pressure Intensity/Depth Superficial Body Position Supine 1 Body Location R scalenes, UT, Rhomboids, scapular borders Mobilization Type Rolling Strumming Sustained Pressure Trigger Point Release Intensity/Depth Superficial Body Position Supine Manual Techniques 1 Type Gentle manual passive stretch to rhomboids, scaplura stabilizers, rotaors c Body Position Sitting PT-OP-R Modalities Start: 07/09/18 16:21 Freq: Status: Active Protocol: Document 08/26/18 10:58 EA (Rec: 08/26/18 11:07 EA [id number]) Electric Stimulation Electric Stimulation Interferential Current (IFC) Body Location Right medial scap border Duration (Minutes) 25 Contraction Type Normal Patient Position Prone Combined With Heat/Cold Hot Pack Hot Pack/Cold Pack Treatment Hot Pack Location upper back Patient Position Hooklying Treatment Duration (minutes) 10 PT-OP-T Assessment and Plan Start: 07/09/18 16:21 Freq: Status: Active Protocol: Document 08/26/18 10:58 JOSEPH (Rec: 08/26/18 11:07 JOSEPH [id number]) Physical Therapy Assessment Assessment Summary Assessment Patient able to carry conversation today with no acute distress, however subjectively compliant of very painful today. Patient able to perform overhead ROM with no muscular guarding or substitution. I advised to see her primary care provider for further evaluation as symptoms is not steadily progressing. No signs of trauma or acute signs of inflammation noted to upper back, right shoulder. Physical Therapy Plan Hold Physical Therapy Reason For Hold Check with physician as necessary. Next Visit Focus/Plan Next Note Type Re-Evaluation
--- NOTE | 2018-12-10 11:53 | PT.OPDS ---
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 Worker Primary Care Provider Specialty: Family Practice Address: [address] [place] [address], [id number] Email: [email or web address] Visit Number Visit Number 14 Discharge Summary PT-OP-B Current Condition Start: 07/09/18 16:21 Freq: Status: Active Protocol: Document 07/09/18 17:35 EA (Rec: 07/10/18 07:30 EA [id number]) Current Condition History of Current Condition Onset Date June 29, 2018 Current Complaints Mid back pain w/ tingling radiates down R arm and dorsal 3rd and 4th finger History of Current Condition Patient reports current condition started more than 6 months ago and which exacerbates more than a week ago after prunning on her backyard; states advil and helps to alleviate pain and tingling but was not completely eliminate. Patient reports pain and tingling mostly happened upon waking up in the morning or in the middle of the evening and decreases once strated using it during the day. She also mentioned that arm pain and tingling mostly accompanied with mid back pain. She denies recent diagnostic imaging. She denies any related injury in the past. Prior Treatments and Tests Advil for pain Future Testing and Treatments Planned None identified. Treatment Goals Patient/Caregiver Goals Patient wants to get rid of the pain so she could use it for writing and be able sleep without bothering from pain and abnormal sensation to right UE. 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 Functional Limitations- Work/School Unable to work due to right shoulder and hand discomfort. Functional Limitations- Recreation/ Difficulty with gardening. Hobbies Personal Factors Other Personal Factors That May Effect None identified. Therapy/Recovery PT-OP-C Subjective Start: 07/09/18 16:21 Freq: Status: Active Protocol: Document 08/26/18 10:58 EA (Rec: 08/26/18 11:07 EA [id number]) OP-PT Subjective Patient Comments Patient Comments Pt reports that she feels improved shoulder symptoms right after the session and symptoms worsesn after doing home activities. She reports painting for an hour last weekened agggravates her right scapular border. I feel there is more deep propblem and I want an MRI. 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 Tight shoulder internal rotators. Joint Mobility Assessment Joint Mobility Assessment Normal joint mobility on shoulder, CMC, wrists. PT-OP-J Posture/Palpation/Skin Start: 07/09/18 16:21 Freq: Status: Active Protocol: Document 07/09/18 17:35 EA (Rec: 07/10/18 12:38 EA [id number]) Posture Evaluation Position Standing Evaluation View Lateral Head/C-Spine Posture Extended,Forward Head Shoulder Posture (L) Rounded,(L) Forward Scapula Posture (L) Protracted,(R) Protracted Comments Posture Comments Slight fwd head with shoulders internally rotated. Palpation Assessment Location One Palpation Location Rhomboids, mid traps, right scapular muscles. Palpation Findings Tenderness,Trigger Point Palpation Details Both rhomboids PT-OP-K Range of Motion Start: 07/09/18 16:21 Freq: Status: Active Protocol: Document 07/09/18 17:35 EA (Rec: 07/10/18 12:15 EA [id number]) Cervical Spine Range of Motion Cervical Spine Active Percentage Testing Position Sitting Flexion 90 Extension 85 Rotation Left 85 Rotation Right 85 Lateral Flexion Left 80 Lateral Flexion Right 80 ROM Limitations Soft Tissue Tightness,Pain Shoulder Goniometric Range of Motion Shoulder Right Active Shoulder ROM WFL Yes Elbow/Forearm Range of Motion Elbow/Forearm Right Active Elbow/Forearm ROM WFL Yes Thumb Goniometric Range of Motion Thumb Left Thumb ROM WFL Yes PT-OP-L Special Tests Start: 07/09/18 16:21 Freq: Status: Active Protocol: Document 07/09/18 17:35 EA (Rec: 07/10/18 12:15 EA [id number]) Special Tests Cervical Spine Special Tests Upper Limb Tension Test Test Results + ulnar Foraminal Compression Test Results - Vertebral Artery Test Results - Shoulder Special Tests Leung Santy Impingement Test Results - Elevation Impingement Test Results - Neural Special Tests- Lower Body Other- 1 Test Results Juancarlos and Lala tests + Other Special Tests Special Tests Trigger point jump sign: positive at right medial scapular border PT-OP-M Strength Start: 07/09/18 16:21 Freq: Status: Active Protocol: Document 07/09/18 17:35 EA (Rec: 07/10/18 12:15 EA [id number]) Cervical Spine Strength Cervical Spine Manual Muscle Testing Testing Position Supine Reason Not Measured WFL Shoulder Strength Shoulder Manual Muscle Testing Right Reason Not Measured WFL Wrist Strength Wrist Manual Muscle Testing Right Reason Not Measured WFL Finger/Thumb Strength Finger Manual Muscle Testing Right Thumb Reason Not Measured WFL Hand 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 D/C from PT
== END 2018-12-18 16:29 | disposition home or self-care (01) ==
LOC: PHYS 10:30
PROVIDERS: PCP Nurse Practitioner Family; Visit Provider Nurse Practitioner Family
DX: R20.0 Anesthesia of skin (principal)
CPT/HCPCS: 97010; 97014; 97110; 97140; 97161; 97535; G0283

== ENCOUNTER 2018-11-14 10:45 | Day surgery (SDC) | payer OTHER, MEDICAID, SELFPAY ==
[2018-11-07 13:56] VITALS: BMI 22.3
[2018-11-14 11:24] VITALS: BP 102/68; PULSE 75; RESP 15; TEMP 36.4; O2SAT 100
[2018-11-14 11:35] VITALS: BMI 21.6
[2018-11-14] MEDS: LACTATED RINGERS 1,000 ML 42 ML IV (11:42)
--- NOTE | 2018-11-14 13:04 | PM.PREOP ---
Pre-operative Note Interval Note History & Physical reviewed/Exam performed by Physician: Yes Changes to H&P: No
[2018-11-14] MEDS: CEFAZOLIN 2 GM/100 ML FROZ.PIGGY IV (13:47)
--- NOTE | 2018-11-14 13:52 | SUR.OPER ---
Supine on padded OR bed, head on pillow, arms secured on padded arm boards at <90 degrees abduction, legs uncrossed, safety belt at thigh.
[2018-11-14] MEDS: BUPIVACAINE 0.5% W/ EPI (PF) VIAL 30 ML INJ (13:57)
--- NOTE | 2018-11-14 14:02 | PM.OP.1 ---
Operative Date/Time/Diagnoses Date of procedure: 11/14/18 Time of procedure: 13:29 Pre-op diagnosis: Right carpal tunnel Post-op diagnosis: same Procedure & Clinicians Procedure: Carpal tunnel release Same procedure as scheduled: Yes Indications: Right carpal tunnel Surgeon: Vince العلي Click Yes if Unassisted: Yes Anesthesia Type: Peripheral nerve block Operative Notes Findings: Compression of the median nerve at the carpal tunnel Closure Type: primary Specimen(s): none sent Estimated Blood Loss (mL): 0 Blood products transfused: none Tourniquet time (min): 21 Procedure in detail: On date of service, the patient was met in the holding area. Patients operative site was signed and witnessed by the OR staff. The surgery was once again discussed with the patient, and any remaining questions they had were answered fully. Patient was taken back to the operating theater and placed on the operating table in a supine position. Great care was taken to ensure that all bony prominences were carefully padded. A well-padded tourniquet was placed up along the upper extremity. A timeout was performed to verify patient's name, procedure, and operative site. The arm was then prepped and draped in the normal sterile fashion. A 15 blade was used to incise through skin In the center of the palm. Pickups and tenotomy scissors were used to dissect down until the palmar fascia was visualized. The palmar fascia was then sharply incised using a 15 blade. This gave us good visualization of the carpal ligament. A small opening was made into the carpal ligament, and a curved hemostat was placed into that opening. A 15 blade was then used to sharply incise the carpal ligament with the structures beneath being protected by the hemostat. Pickups and Metzenbaum scissors were used to complete the decompression both distally and proximally. This provided a complete decompression of the median nerve. The wound was then irrigated and closed with nylon. The hand was then cleaned, dried, and dressed. Patient was taken to the PACU in stable condition. Complications: none Post-operative Condition: stable Disposition: PACU Plan for aftercare: Patient will follow our postoperative protocol for carpal tunnel release
[2018-11-14 14:11] VITALS: BP 131/80; PULSE 79; RESP 15; TEMP 36.3; O2SAT 94
--- NOTE | 2018-11-14 14:11 | PM.HP.1 ---
History of Present Illness History of Present Illness Date Patient Seen: 11/14/18 Time Patient Seen: 14:11 Chief complaint: [id number] Narrative: Patient was signs of right carpal tunnel unresponsive to conservative treatment. Patient History Medical History Back pain (Acute) Patient denies medical problems (Acute) Surgical History No history of previous surgery (Acute) Social History household members: friend(s) Smoking Status: Current every day smoker Tobacco: How many years used: 30 quit status: not considering quitting (Patient given smoking cessation handout) second hand exposure: No alcohol intake: never substance use type: does not use Family & Social History Social History: household members friend(s) Tobacco & Substance use: Smoking Status Current every day smoker alcohol intake never Substance Use Type does not use Meds Home Medications and Allergies Home Medications Medication Instructions Recorded Confirmed Type hydrocodone-acetaminophen [[place]] 2 tab PO Q4-6H PRN #30 tab 11/14/18 Rx Allergies Allergy/AdvReac Type Severity Reaction Status Date / Time cephalexin [From Keflex] Allergy Severe really Verified 11/14/18 11:45 sick hydrocodone [HYDROCODONE] AdvReac Intermediate Nausea Verified 11/14/18 11:45 Exam Vital Signs (past 8 hours): - 11/14/18 11:24 Temperature 97.6 F Pulse Rate 75 Respiratory Rate 15 Blood Pressure 102/68 Pulse Oximetry 100 Oxygen Delivery Method Room Air Narrative Exam Narrative: Patient with decreased sensation in the median nerve distribution. No sign of any thenar atrophy or intrinsic wasting. Full range of motion of the wrist and fingers. Flexion extensor mechanisms are intact, symmetric, and stable. Positive Tinel's, some compression, and Phalens test. Assessment & Plan Assessment & Plan narrative: Right carpal tunnel unresponsive to conservative treatment. Patient is interested in surgery. Fully understands all risks and limitations associated with the procedure.
--- NOTE | 2018-11-14 14:33 | SUR.PHASEII ---
Attempted to reach patient's ride, unsuccessful. No answer.
== END 2018-11-14 14:34 | disposition home or self-care (01) ==
PROVIDERS: PCP Nurse Practitioner Family; Visit Provider Orthopaedic Surgery
PROC: (CPT 64721; principal; 2018-11-14 12:15)
DX: G56.01 Carpal tunnel syndrome, right upper limb (principal); F17.210 Nicotine dependence, cigarettes, uncomplicated
CPT/HCPCS: 64721; J0690; J3010